=== PATIENT | male | born 1940 | race Caucasian/White ===

== ENCOUNTER 2019-05-29 18:21 | Inpatient (IN) ==
--- NOTE | 2019-05-29 18:49 | DR.EXTPAIN ---
HPI Time seen Time Seen by Provider: 05/29/19 18:43 PCP Primary Care Physician: blue HPI Comment HPI Comment: PATIENT IS 79YR OLD WHITE MALE IN ER WITH ELEVATED BP. PATIENT IS WEAK AND SLEEPING A LOT. HEART RATE IS IRREGULAR IN ER BUT NOT RAPID OR SLOW. NO HISTORY OF IRREGULAR HEART BEAT. BP ELEVATED IN ER. CHEST PRESSURE, MILD PRESENT. STARTED 2 DAYS AGO. NO FEVER, COUGH OR CONGESTION. NO DYSURIA. HIS CONDITION IS WORSE TODAY. Complaint/Symptoms Chief Complaint Doctor Comments: ELEVATED BP. Chief Complaint:: pt stated he started having problems with high blood pressure about 2 days ago and unable to get it down. Nurses notes reviewed Nurses Notes Review: Yes Source History Provided: Patient Mode of arrival Mode of Arrival: Ambulatory Timing Onset of Chief Complaint: 05/27/19 Context History of: Arthritis Associated signs and symptoms Associated Signs and Symptoms: Weakness and Pain PMH PMH Past Medical History: Yes Past Medical History: Arthritis, Coronary Artery Disease and Hypertension Past Surgical History: Yes Surgical History: Abdominal Surgery, Angioplasty/Stents and Ortho Surgery Family History History of Family Medical Conditions: Yes Family Medical History: NM and Coronary Artery Disease Social History Does patient currently use any type of tobacco product: Yes Have you used tobacco products in the last 12 months: Yes Type of Tobacco Use: Pipe Does any household member use tobacco: No Alcohol Use: Rarely Do you use any recreational Drugs:: No Lives With: Family Lives Where: Home infectious screening In the last 2 months have you had wt loss of >10#?: NO Have you had fever, night sweats or hemotysis?: No Have you traveled outside the country in the last 6 months?: No Isolation: Standard ROS Review of Systems Constitutional: See HPI, Weakness and Fatigue; negative Fever Eyes: No Symptoms Reported and See HPI; negative Blurred Vision and Diplopia ENTM: No Symptoms Reported and See HPI; negative Ear Pain, Nose Discharge, Nose Congestion and Throat Pain Respiratoy: See HPI and Short of Breath; negative Moist Cough and Wheezing Cardiovascular: No Symptoms Reported, See HPI, Chest Pain and Other (IRREGULAR HEART RATE.); negative Edema and Palpitations Gastrointestinal/Abdominal: No Symptoms Reported and See HPI; negative Abdominal Pain, Diarrhea, Nausea and Vomiting Genitourinary: No Symptoms Reported and See HPI; negative Dysuria, Frequency and Hematuria Neurological: See HPI and Weakness; negative Headache and Dizziness Musculoskeletal: No Symptoms Reported and See HPI; negative Back Pain and Muscle Pain Integumentary: No Symptoms Reported and See HPI; negative Change in Color, Rash and Juandice Hematologic/Lymphatic: No Symptoms Reported and See HPI; negative Easy Bruising and Swollen Glands Endocrine: No Symptoms Reported and See HPI; negative Increased Thirst and Increased Urine Psychiatric: No Symptoms Reported and See HPI All Other Systems: Reviewed and Negative PE Vital Signs Vitals: Temperature 98.6 F Pulse Rate 72 Respiratory Rate 23 Blood Pressure [Left Arm] 168/79 Blood Pressure [Standing] 99/58 Blood Pressure [Sitting] 100/61 Blood Pressure [Lying] 105/60 Blood Pressure 148/83 O2 Sat by Pulse Oximetry 90 General Limitations: No Limitations General Appearance: Alert and In No Apparent Distress Head Head Exam: Normal Inspection and Atraumatic Eyes Eye exam: Normal Appearance, PERRL and EOMI; negative Scleral Icterus and Conjunctival Injection ENT ENT Exam: Normal Exam, Normal Oropharynx, Normal External Ear Exam and TM's No rmal Bilaterally Neck Neck Exam: Normal Inspection and Trachea Midline; negative Tenderness and Lymphadenopathy Chest Chest Inspection: Normal Inspection and Symmetric Chest Wall Rise; negative Tenderness Respiratory Respiratory Exam: Normal Lung Sounds Bilat; negative Accessory Muscle Use, Chest Wall Tenderness and Respiratory Distress Respiratory Exam: Bilateral: Rhonchi and Lower: Rhonchi Cardiovascular Cardiovascular Exam: Normal Rhythm and Tachycardia Abdominal Exam Abdominal Exam: Normal Inspection, Normal Bowel Sounds and Soft; negative Tenderness Extremities Extremities Exam: Normal Inspection Back Back Exam: Normal Inspection Neurological Neurological Exam: Alert, Oriented X3, CN II-XII Intact and Normal Gait; negative Motor Sensory Deficit Psychiatric Psychiatric Exam: Normal Affect and Normal Mood Skin Skin Exam: Warm, Dry, Intact and Normal Color MDM Differential Diagnosis Differential Diagnosis: Other (IRREGULAR HEART RATE, ELEVATED BP, GENERALIZED WEAKNESS) COURSE Treatment Treatment: SEE ORDERS. CLONIDINE O.1MG PO. PATIENT SIGN OUT TO DR. KUO. Reevaluation 1st: Improved (BP IMPROVING.) ROR Labs Reviewed Laboratory Results Reviewed?: Yes Result Diagrams: 05/30/19 04:36 05/30/19 04:36 Laboratory: WBC 7.1 X10^3/uL (3.6-10.0) 05/29/19 18:51 RBC 4.33 X10^6/uL (4.7-6.0) L 05/29/19 18:51 Hgb 14.2 g/dL (13.5-18.0) 05/29/19 18:51 Hct 41.8 % (42.0-54.0) L 05/29/19 18:51 MCV 96.5 fL (80.0-100.0) 05/29/19 18:51 MCH 32.8 pg (27.0-34.0) 05/29/19 18:51 MCHC 34.0 g/dL (33.0-35.0) 05/29/19 18:51 RDW 13.8 % (11.6-16.5) 05/29/19 18:51 Plt Count 158 X10^3/uL (150.0-450.0) 05/29/19 18:51 MPV 8.6 fL (7.4-11.0) 05/29/19 18:51 Neut % (Auto) 60.7 % (42.0-75.0) 05/29/19 18:51 Lymph % (Auto) 23.7 % (21.0-51.0) 05/29/19 18:51 [place] % (Auto) 12.2 % (0.0-13.0) 05/29/19 18:51 Eos % (Auto) 2.7 % (0.9-2.9) 05/29/19 18:51 Baso % (Auto) 0.7 % (0.2-1.0) 05/29/19 18:51 Neut # (Auto) 4.3 x10^3/uL (2.2-4.8) 05/29/19 18:51 Lymph # (Auto) 1.7 X10^3/uL (1.3-2.9) 05/29/19 18:51 [place] # (Auto) 0.9 x10^3/uL (0.3-0.8) H 05/29/19 18:51 Eos # (Auto) 0.2 x10^3/uL (0.0-0.2) 05/29/19 18:51 Baso # (Auto) 0.0 X10^3/uL (0.0-0.1) 05/29/19 18:51 Absolute Nucleated RBC 0.0 /100WBC 05/29/19 18:51 PT 13.1 SECONDS (11.8-14.3) 05/29/19 18:51 INR Target Range - 05/29/19 18:51 INR 1.03 (0.8-1.3) 05/29/19 18:51 APTT 30.1 SECONDS (22.9-36.5) 05/29/19 18:51 PTT Comment - 05/29/19 18:51 D-Dimer 1230 ng/mL (0-400) H* 05/29/19 18:51 Sodium 140 mmol/L (136-145) 05/29/19 18:51 Corrected Sodium TNP 05/29/19 18:51 Potassium 3.7 mmol/L (3.5-5.1) 05/29/19 18:51 Chloride 105 mmol/L (98-107) 05/29/19 18:51 Carbon Dioxide 29.8 mmol/L (21-32) 05/29/19 18:51 BUN 18 mg/dL (7-18) 05/29/19 18:51 Creatinine 1.20 mg/dL (0.70-1.30) 05/29/19 18:51 Est GFR (MDRD) Af Amer > 60 (>60) 05/29/19 18:51 Est GFR (MDRD) Non-Af > 60 (>60) 05/29/19 18:51 Glucose 88 mg/dL (65-99) 05/29/19 18:51 Calcium 9.0 mg/dL (8.5-10.1) 05/29/19 18:51 Corrected Calcium TNP 05/29/19 18:51 Magnesium 1.8 mg/dL (1.7-2.9) 05/29/19 18:51 Total Bilirubin 0.70 mg/dL (0.2-1.0) 05/29/19 18:51 AST 17 Units/L (15-37) 05/29/19 18:51 ALT 24 Units/L (12-78) 05/29/19 18:51 Alkaline Phosphatase 52 Units/L (46-116) 05/29/19 18:51 Creatine Kinase 91 Units/L (39-308) 05/29/19 22:34 CK-MB (CK-2) 1.2 ng/mL (0-4.0) 05/29/19 22:34 CK/CKMB % Calc 1.3 % (<4) 05/29/19 22:34 Troponin I < 0.02 ng/mL (0-1.5) 05/29/19 22:34 Total Protein 7.3 g/dL (6.4-8.2) 05/29/19 18:51 Albumin 3.9 g/dL (3.4-5.0) 05/29/19 18:51 Globulin 3.4 g/dL (2.5-4.5) 05/29/19 18:51 Albumin/Globulin Ratio 1.1 Ratio (1.1-2.1) 05/29/19 18:51 XRAY XRAY Interpreted by: Radiologist (REPORTS NOTED.) and Self EKG Rate: 88 [place]: LAD Rhythm: Afib Block: None Hypertrophy: None ST: Infarct and Nonsp Opioid Opioid Risk Tool Age (Virgilio box if 16-45): No History of Preadolescent Sexual Abuse: No Total: 0 Total Score Risk Category: Low Risk Copyright: Bandar LONG predicting aberrant behaviors Diagnosis Discharge Problem: Atrial fibrillation, Accelerated hypertension, Chest pain, Pleural effusion, Lung mass Aorta aneurysm Qualifiers: Aortic location: unspecified Instructions Forms: Excuse From Work Patient Portal
[2019-05-29] MEDS ORDERED: CATAPRES TAB 0.1 MG PO ONE (19:06)
[2019-05-29] MEDS ORDERED: CATAPRES TAB 0.1 MG ONE (19:07)
[2019-05-29 19:22] LABS: BASOPHILS % (AUTO) 0.7 % (0.2-1.0); EOSINOPHILS # (AUTO) 0.2 x10^3/uL (0.0-0.2); EOSINOPHILS % (AUTO) 2.7 % (0.9-2.9); HEMATOCRIT 41.8 % (42.0-54.0); HEMOGLOBIN 14.2 g/dL (13.5-18.0); LYMPHOCYTES # (AUTO) 1.7 X10^3/uL (1.3-2.9); LYMPHOCYTES % (AUTO) 23.7 % (21.0-51.0); MEAN CORPUSCULAR HEMOGLOBIN 32.8 pg (27.0-34.0); MEAN CORPUSCULAR VOLUME 96.5 fL (80.0-100.0); MEAN PLATELET VOLUME 8.6 fL (7.4-11.0); MONOCYTES # (AUTO) 0.9 x10^3/uL (0.3-0.8); MONOCYTES % (AUTO) 12.2 % (0.0-13.0); NEUTROPHILS # (AUTO) 4.3 x10^3/uL (2.2-4.8); NEUTROPHILS % (AUTO) 60.7 % (42.0-75.0); PLATELET COUNT 158 X10^3/uL (150.0-450.0); RED BLOOD COUNT 4.33 X10^6/uL (4.7-6.0); RED CELL DISTRIBUTION WIDTH 13.8 % (11.6-16.5); WHITE BLOOD COUNT 7.1 X10^3/uL (3.6-10.0)
--- NOTE | 2019-05-29 19:37 | RAD ---
HISTORYCHEST PAINSTUDYCHEST, 1 [id number] heart is mildly enlarged and more prominent. The pulmonary vessels are slightly engorged centrally and more prominent. No consolidation or effusion is seen. The bones are intact.IMPRESSIONMild cardiomegaly and mild central pulmonary congestion or pulmonary artery hypertension which is more prominent with no acute infiltrate or effusion.Electronically signed by: THI ZARATE (May 29, 2019 19:36:28)
[2019-05-29 20:56] LABS: ALANINE AMINOTRANSFERASE 24 Units/L (12-78); ALBUMIN 3.9 g/dL (3.4-5.0); ALKALINE PHOSPHATASE 52 Units/L (46-116); ASPARTATE AMINO TRANSFERASE 17 Units/L (15-37); BLOOD UREA NITROGEN 18 mg/dL (7-18); CARBON DIOXIDE 29.8 mmol/L (21-32); CHLORIDE 105 mmol/L (98-107); CKMB % 1.4 % (<4); CREATINE KINASE 100 Units/L (39-308); CREATINE KINASE MB 1.4 ng/mL (0-4.0); MAGNESIUM 1.8 mg/dL (1.7-2.9); SODIUM 140 mmol/L (136-145); TOTAL PROTEIN 7.3 g/dL (6.4-8.2); TROPONIN I < 0.02 ng/mL (0-1.5); eGFR NON BLACK RACES > 60 (>60)
[2019-05-29] MEDS ORDERED: CATAPRES TAB 0.2 MG ONE (21:59)
[2019-05-29] MEDS: CATAPRES TAB 0.2 MG PO ONE (21:59)
--- NOTE | 2019-05-29 22:01 | CT ---
HISTORYCHEST PAIN, ELEVTATED D DIMER [id number] CHESTCOMPARISONNoneTECHNIQUEMultiple axial images of the chest were obtained from the thoracic inlet to the upper abdomen after the administration of IV contrast. 3D reconstructions utilizing axial MIPS imaging was performed and reviewed. Dose reduction techniques including Automated Exposure Control (AEC) and adjustment of mA and kV were utilized.FINDINGSThe thyroid gland is unremarkable. There is mild calcified plaque throughout the aorta which is mildly dilated throughout with aneurysmal dilatation of the ascending aorta measuring up to 5.2 cm. There is very little opacification of the aorta making it difficult to further characterize the lumen.There are small lymph nodes in the AP window and pretracheal region measuring up to 1 cm 1.5 cm. The pulmonary arteries are well opacified with no filling defect or vessel cutoff. The adrenals are normal. The gallbladder has been removed. There surgical clips along the epigastric region. There is a tiny right pleural effusion posteriorly with hazy bibasilar opacities posteriorly which is more prominent on the right. There is a 8 mm pleural-based nodule along the right middle lobe laterally. There is an erect 2.7 cm mass or infiltrate along the left lung base medially. There is 7 mm nodule along the lingula inferiorly and laterally. The bones are intact.IMPRESSIONNo evidence of a pulmonary embolus.Mild atherosclerotic thoracic aorta with aneurysmal dilatation of the ascending aorta measuring up to 5.2 cm with no significant opacification of the aorta making it difficult to further characterize, recommend clinical follow-up.Mild bibasilar atelectasis or early infiltrates posteriorly and a tiny right pleural effusion, recommend follow-upBorderline enlarged mediastinal lymph nodes which could be reactive or neoplastic in etiology, suggest PET scan correlation.Small pulmonary nodules along the lung bases and a 2.7 cm mass or rounded irregular infiltrate along the left lung base medially, suggest PET scan correlation.Postop changes along the epigastric region and previous cholecystectomy.Electronically signed by: THI ZARATE (May 29, 2019 22:00:19)
[2019-05-29] MEDS ORDERED: LASIX IVP ONE ×2 (22:21→22:29)
[2019-05-29] MEDS ORDERED: LABETALOL HCL IVP ONE (22:57)
[2019-05-29] MEDS ORDERED: NORMODYNE INJ 20 MG VIAL ONE (22:59)
[2019-05-29 23:00] LABS: CKMB % 1.3 % (<4); CREATINE KINASE 91 Units/L (39-308); CREATINE KINASE MB 1.2 ng/mL (0-4.0); TROPONIN I < 0.02 ng/mL (0-1.5)
[2019-05-29] MEDS ORDERED: ELIQUIS PO STA (23:23)
[2019-05-30 02:00] VITALS: BMI 28.3
[2019-05-30 05:27] LABS: BASOPHILS % (AUTO) 0.7 % (0.2-1.0); EOSINOPHILS # (AUTO) 0.2 x10^3/uL (0.0-0.2); EOSINOPHILS % (AUTO) 2.5 % (0.9-2.9); HEMATOCRIT 42.7 % (42.0-54.0); HEMOGLOBIN 14.7 g/dL (13.5-18.0); LYMPHOCYTES # (AUTO) 1.8 X10^3/uL (1.3-2.9); MEAN CORPUSCULAR HEMOGLOBIN 33.2 pg (27.0-34.0); MEAN CORPUSCULAR HGB CONC 34.4 g/dL (33.0-35.0); MEAN CORPUSCULAR VOLUME 96.7 fL (80.0-100.0); MONOCYTES # (AUTO) 0.8 x10^3/uL (0.3-0.8); MONOCYTES % (AUTO) 12.6 % (0.0-13.0); NEUTROPHILS # (AUTO) 3.8 x10^3/uL (2.2-4.8); NEUTROPHILS % (AUTO) 57.2 % (42.0-75.0); PLATELET COUNT 148 X10^3/uL (150.0-450.0); RED BLOOD COUNT 4.42 X10^6/uL (4.7-6.0); RED CELL DISTRIBUTION WIDTH 14.1 % (11.6-16.5); WHITE BLOOD COUNT 6.6 X10^3/uL (3.6-10.0)
[2019-05-30 05:36] LABS: ALANINE AMINOTRANSFERASE 22 Units/L (12-78); ALKALINE PHOSPHATASE 56 Units/L (46-116); ASPARTATE AMINO TRANSFERASE 16 Units/L (15-37); BLOOD UREA NITROGEN 15 mg/dL (7-18); CALCIUM 9.3 mg/dL (8.5-10.1); CARBON DIOXIDE 32.5 mmol/L (21-32); CHLORIDE 101 mmol/L (98-107); CHOL/HDL RATIO 2.2 (0.0-5.0); CHOLESTEROL 105 mg/dL (0-200); CREATININE 1.13 mg/dL (0.70-1.30); HDL CHOLESTEROL 47 mg/dL (40-60); SODIUM 141 mmol/L (136-145); TOTAL PROTEIN 7.6 g/dL (6.4-8.2); TRIGLYCERIDES 42 mg/dL (0-150); eGFR NON BLACK RACES > 60 (>60)
[2019-05-30 05:51] LABS: CKMB % 1.6 % (<4); CREATINE KINASE MB 1.3 ng/mL (0-4.0); TROPONIN I 0.02 ng/mL (0-1.5)
[2019-05-30] MEDS: ALPHAGAN 0.2% OPHTH SOLN OP SCH ×3 (09:18→20:06)
[2019-05-30] MEDS: PLAVIX PO SCH (09:19)
[2019-05-30] MEDS: ELIQUIS PO SCH ×2 (09:19→20:06)
[2019-05-30] MEDS: TIMOPTIC 0.5% EYE DROPS OP SCH ×3 (09:20→20:08)
[2019-05-30] MEDS: COLESTIPOL PO SCH ×2 (09:20→22:32)
[2019-05-30] MEDS: PROTONIX INJ 40 MG VIAL IVP SCH (09:20)
[2019-05-30 11:03] LABS: CKMB % 2.4 % (<4); CREATINE KINASE 71 Units/L (39-308); CREATINE KINASE MB 1.7 ng/mL (0-4.0); TROPONIN I < 0.02 ng/mL (0-1.5)
[2019-05-30] MEDS ORDERED: NORVASC TAB 5 MG PO SCH (12:00)
[2019-05-30] MEDS ORDERED: NORVASC TAB 5 MG ONE (12:14)
[2019-05-30] MEDS ORDERED: TOPROL XL PO ONE ×2 (12:14→22:30)
[2019-05-30] MEDS: TOPROL XL PO ONE (12:16)
[2019-05-30] MEDS ORDERED: NORVASC TAB 5 MG PO ONE (18:28)
[2019-05-30] MEDS ORDERED: COZAAR PO SCH (21:00)
[2019-05-30] MEDS ORDERED: LIPITOR TAB 40 MG PO SCH (21:00)
[2019-05-30] MEDS ORDERED: TOPROL XL PO SCH (21:00)
[2019-05-31 05:23] LABS: BASOPHILS % (AUTO) 0.7 % (0.2-1.0); EOSINOPHILS # (AUTO) 0.3 x10^3/uL (0.0-0.2); EOSINOPHILS % (AUTO) 3.6 % (0.9-2.9); HEMATOCRIT 42.9 % (42.0-54.0); HEMOGLOBIN 14.6 g/dL (13.5-18.0); LYMPHOCYTES % (AUTO) 28.2 % (21.0-51.0); MEAN CORPUSCULAR HEMOGLOBIN 33.1 pg (27.0-34.0); MEAN CORPUSCULAR HGB CONC 34.1 g/dL (33.0-35.0); MEAN PLATELET VOLUME 9.1 fL (7.4-11.0); MONOCYTES # (AUTO) 0.9 x10^3/uL (0.3-0.8); NEUTROPHILS # (AUTO) 3.8 x10^3/uL (2.2-4.8); NEUTROPHILS % (AUTO) 54.5 % (42.0-75.0); PLATELET COUNT 155 X10^3/uL (150.0-450.0); RED BLOOD COUNT 4.42 X10^6/uL (4.7-6.0); RED CELL DISTRIBUTION WIDTH 13.9 % (11.6-16.5)
[2019-05-31 05:33] LABS: ALANINE AMINOTRANSFERASE 20 Units/L (12-78); ALBUMIN 3.5 g/dL (3.4-5.0); ALKALINE PHOSPHATASE 49 Units/L (46-116); ASPARTATE AMINO TRANSFERASE 15 Units/L (15-37); BLOOD UREA NITROGEN 18 mg/dL (7-18); CARBON DIOXIDE 32.5 mmol/L (21-32); CHLORIDE 103 mmol/L (98-107); CREATININE 1.12 mg/dL (0.70-1.30); SODIUM 141 mmol/L (136-145); eGFR NON BLACK RACES > 60 (>60)
[2019-05-31] MEDS ORDERED: TOPROL XL PO SCH (09:00)
[2019-05-31] MEDS ORDERED: NORVASC TAB 10 MG PO SCH (09:00)
[2019-05-31] MEDS: COLESTIPOL PO SCH (09:59)
[2019-05-31] MEDS: PROTONIX INJ 40 MG VIAL IVP SCH (09:59)
[2019-05-31] MEDS: ELIQUIS PO SCH (09:59)
[2019-05-31] MEDS: ALPHAGAN 0.2% OPHTH SOLN OP SCH (10:00)
[2019-05-31] MEDS: PLAVIX PO SCH (10:00)
[2019-05-31] MEDS: TIMOPTIC 0.5% EYE DROPS OP SCH (10:00)
[2019-05-31 10:26] VITALS: BP 137/81
== END 2019-05-31 10:40 | disposition home or self-care (01) | DRG 310 ==
LOC: ER 18:35 → ICU 05-30 00:42
PROVIDERS: ADMIT Obstetrics & Gynecology Obstetrics; ATTEND Obstetrics & Gynecology Obstetrics
DX: I25.10 Atherosclerotic heart disease of native coronary artery without angina pectoris; R91.8 Other nonspecific abnormal finding of lung field; R94.31 Abnormal electrocardiogram [ECG] [EKG]; R07.89 Other chest pain; I48.91 Unspecified atrial fibrillation; I10 Essential (primary) hypertension; I71.4 Abdominal aortic aneurysm, without rupture
CPT/HCPCS: 36415; 71010; 71045; 71275; 80053; 80061; 82550; 82553; 83735; 84484; 85025; 85378; 85610; 85730; 93005; 96365; 96374; 96375; 99285; A4216; A4222; C9113; J1940; J3490

== ENCOUNTER 2019-11-29 12:44 | Inpatient (IN) ==
[2019-11-29 13:17] VITALS: BMI 29.7
--- NOTE | 2019-11-29 14:06 | DR.SOBA ---
HPI Time Seen Time Seen by Provider: 11/29/19 13:20 Primary Care Physician Primary Care Physician: WILLIAM HALE Complaints Chief Complaint Doctors Comments: INCREASING SOB, BODYACHES, LOW OXYGEN SATURATION AND CONTACT WITH COVID POSITIVE PATIENT. GENERALIZED ACHING PAIN 6/10 AND GENERALIZED WEAKNESS. PRODUCTIVE COUGH, YELLOW SPUTUM. RUNNING FEVER ON AND OFF. MEDICATIONS TAKEN SO FAR HAVE NOT HELP. Chief Complaint:: SHORTNESS OF BREATH, ACHES, LOW O2, HAS POSITIVE FAMILY WITH COVID BY HISTORY Self Treatment fo Chief Complaint: HOME MEDS COVID-19 Coronavirus risk:travel/contact w/high risk person: No Has patient experienced Coronavirus symptoms: Yes Coronavirus symptoms experienced: Fever, Coughing and Shortness of Breath Reviewed Nurses Notes Reviewed: Yes Source History Provided: Patient and EMS Mode of Arrival Mode of Arrival: EMS Timing Onset of Chief Complaint: 11/23/19 Duration Duration: Days Context Onset:: At Rest PE Risk Factors:: None History of:: None Currently on:: Neither Prehospital Care:: None Modifying Factors Worsens:: Exertion Improves:: Rest Associated Signs and Symptoms Associated Signs and Symptoms: Fever and Cough If Chest Pain Quality: Aching Location: Substernal and Chest Wall If Cough Cough: Nonproductive PMH PMH Past Medical History: Yes Past Medical History: Arthritis, Coronary Artery Disease and Hypertension Past Surgical History: Yes Surgical History: Abdominal Surgery and Bowel Resection Family History History of Family Medical Conditions: Yes Family Medical History: Coronary Artery Disease and Hypertension Social History Does patient currently use any type of tobacco product: No Type of Tobacco Use: None Does any household member use tobacco: No Alcohol Use: None Do you use any recreational Drugs:: No Lives With: Family Lives Where: Home Travel Risk Coronavirus risk:travel/contact w/high risk person: No Has patient experienced Coronavirus symptoms: Yes Coronavirus symptoms experienced: Fever, Coughing and Shortness of Breath Infectious screening In the last 2 months have you had wt loss of >10#?: NO Have you had fever, night sweats or hemotysis?: No Have you traveled outside the country in the last 6 months?: No Isolation: Droplet ROS Review of Systems Constitutional: See HPI, Fever, Weakness, Fatigue and Loss of Appetite Eyes: No Symptoms Reported and See HPI ENTM: See HPI, Nose Discharge and Nose Congestion; negative Ear Pain and Throat Pain Respiratoy: See HPI, Productive Cough and Short of Breath; negative Wheezing Cardiovascular: See HPI and Chest Pain (CHEST TIGHTNESS AND CHEST WALL PAIN.) Gastrointestinal/Abdominal: No Symptoms Reported and See HPI; negative Abdominal Pain, Diarrhea, Nausea and Vomiting Genitourinary: No Symptoms Reported and See HPI; negative Dysuria, Frequency and Hematuria Neurological: See HPI, Headache and Weakness; negative Dizziness Musculoskeletal: See HPI, Back Pain and Muscle Pain Integumentary: No Symptoms Reported and See HPI; negative Change in Color, Rash and Juandice Hematologic/Lymphatic: No Symptoms Reported and See HPI; negative Easy Bruising and Swollen Glands Endocrine: Decreased Appetite; negative Increased Thirst and Increased Urine Psychiatric: No Symptoms Reported and See HPI All Other Systems: Reviewed and Negative PE Vital Signs Vitals: Temperature 98.4 F Pulse Rate [Right Brachial] 58 Pulse Rate 62 Respiratory Rate 23 Blood Pressure [Left Arm] 144/67 Blood Pressure [Standing] 99/58 Blood Pressure [Sitting] 100/61 Blood Pressure [Lying] 105/60 Blood Pressure 121/57 O2 Sat by Pulse Oximetry 94 General Limitations: No Limitations General Appearance: Alert and In Distress Head Head Exam: Normal Inspection Eyes Eye exam: Normal Appearance and PERRL; negative Scleral Icterus and Conjunctival Injection ENT ENT Exam: Normal External Ear Exam and TM's Normal Bilaterally; negative Normal Oropharynx Neck Neck Exam: Normal Inspection and Trachea Midline; negative Tenderness and Lymphadenopathy Chest Chest Inspection: Normal Inspection; negative Tenderness Respiratory Respiratory Exam: Normal Lung Sounds Bilat; negative Accessory Muscle Use, Chest Wall Tenderness and Respiratory Distress Respiratory Exam: Bilateral: Rhonchi and Lower: Rhonchi Cardiovascular Cardiovascular Exam: Regular Rate, Normal Rhythm and Normal Heart Sounds; negative Systolic Murmur and Diastolic Murmur Abdominal Exam Abdominal Exam: Normal Inspection, Normal Bowel Sounds and Soft; negative Tenderness Extremities Extremities Exam: Normal Inspection; negative Tenderness and Calf Tenderness Back Back Exam: negative (R) CVA Tenderness and (L) CVA Tenderness Neurologic Neurological Exam: Alert and Oriented X3; negative Motor Sensory Deficit Psychiatric Psychiatric Exam: Normal Affect Skin Skin Exam: Dry, Intact and Normal Color MDM Differential Diagnosis Differential Diagnosis: Bronchitis, CHF, Dysrhythmia, Hyponatremia, Mycardial Infarction, Pneumonia, Pneumothorax, Respiratory Insufficiency and URI COURSE Treatment Treatment: SEE ORDERS. DECADRON 6MG IN. Consultation Consultation Comments: DISCUSSED PATIENT WITH DR. COVINGTON. HE WILL ADMIT PATIENT. Education/Counseling Education/Counseling: Patient Educated On: Diagnosis ROR Labs Reviewed Laboratory Results Reviewed?: Yes Result Diagrams: 12/04/19 04:07 12/04/19 04:07 Laboratory: 11/29/19 14:20 Blood Blood Culture - Final 11/29/19 14:10 Blood Blood Culture - Final WBC 10.7 X10^3/uL (3.6-10.0) H 12/01/19 08:19 RBC 4.31 X10^6/uL (4.7-6.0) L 12/01/19 08:19 Hgb 14.0 g/dL (13.5-18.0) 12/01/19 08:19 Hct 40.9 % (42.0-54.0) L 12/01/19 08:19 MCV 94.8 fL (80.0-100.0) 12/01/19 08:19 MCH 32.5 pg (27.0-34.0) 12/01/19 08:19 MCHC 34.3 g/dL (33.0-35.0) 12/01/19 08:19 RDW 13.7 % (11.6-16.5) 12/01/19 08:19 Plt Count 269 X10^3/uL (150.0-450.0) 12/01/19 08:19 Plt Count Comment Adequate (ADEQUATE) 12/01/19 08:19 MPV 7.5 fL (7.4-11.0) 12/01/19 08:19 Neut % (Auto) 90.4 % (42.0-75.0) H 12/01/19 08:19 Lymph % (Auto) 4.9 % (21.0-51.0) L 12/01/19 08:19 [place] % (Auto) 4.7 % (0.0-13.0) 12/01/19 08:19 Eos % (Auto) 0.0 % (0.9-2.9) L 12/01/19 08:19 Baso % (Auto) 0 % (0.2-1.0) L 12/01/19 08:19 Neut # (Auto) 9.7 x10^3/uL (2.2-4.8) H 12/01/19 08:19 Lymph # (Auto) 0.5 X10^3/uL (1.3-2.9) L 12/01/19 08:19 [place] # (Auto) 0.5 x10^3/uL (0.3-0.8) 12/01/19 08:19 Eos # (Auto) 0.0 x10^3/uL (0.0-0.2) 12/01/19 08:19 Baso # (Auto) 0.0 X10^3/uL (0.0-0.1) 12/01/19 08:19 Absolute Nucleated RBC 0.0 /100WBC 12/01/19 08:19 Total Counted 100 12/01/19 08:19 Neutrophils % (Manual) 88 % (39-76) H 12/01/19 08:19 Lymphocytes % (Manual) 9 % (13-43) L 12/01/19 08:19 Monocytes % (Manual) 3 % (4-9) L 12/01/19 08:19 Plt Morphology Comment Normal (NORMAL) 12/01/19 08:19 RBC Morphology Normal (NORMAL) 12/01/19 08:19 Sample Site Rr 11/29/19 14:10 ABG pH 7.470 (7.35-7.45) H 11/29/19 14:10 ABG pCO2 35.0 mmHg (35.0-45.0) 11/29/19 14:10 ABG pO2 58.0 mmHg (80.0-100.0) L 11/29/19 14:10 ABG HCO3 25.5 mmol/L (22-26) 11/29/19 14:10 ABG O2 Saturation 92.0 % (90-100) 11/29/19 14:10 ABG Base Excess 2.0 mmol/L (-2.0-2.0) 11/29/19 14:10 Domenico Test Pos 11/29/19 14:10 A-a Gradient 48.0 mmHg 11/29/19 14:10 FiO2 21.0 11/29/19 14:10 Blood Gas Comments Pt [email or web address] 11/29/19 14:10 Sodium 137 mmol/L (136-145) 12/01/19 08:19 Corrected Sodium 138 mmol/L (136-145) 12/01/19 08:19 Potassium 3.6 mmol/L (3.5-5.1) 12/01/19 08:19 Chloride 101 mmol/L (98-107) 12/01/19 08:19 Carbon Dioxide 24.0 mmol/L (21-32) 12/01/19 08:19 BUN 17 mg/dL (7-18) 12/01/19 08:19 Creatinine 1.16 mg/dL (0.70-1.30) 12/01/19 08:19 Est GFR (MDRD) Af Amer > 60 (>60) 12/01/19 08:19 Est GFR (MDRD) Non-Af > 60 (>60) 12/01/19 08:19 Glucose 157 mg/dL (65-99) H 12/01/19 08:19 Lactic Acid 1.7 mmol/L (0.4-2.0) 11/29/19 14:10 Calcium 8.8 mg/dL (8.5-10.1) 12/01/19 08:19 Corrected Calcium 9.9 mg/dL (8.5-10.1) 12/01/19 08:19 Ferritin 468 ng/mL (26-388) H 11/29/19 14:10 Total Bilirubin 0.40 mg/dL (0.2-1.0) 12/01/19 08:19 AST 29 Units/L (15-37) 12/01/19 08:19 ALT 38 Units/L (12-78) 12/01/19 08:19 Alkaline Phosphatase 62 Units/L (46-116) 12/01/19 08:19 Creatine Kinase 60 Units/L (39-308) 11/29/19 14:10 CK-MB (CK-2) < 1.0 ng/mL (0-4.0) 11/29/19 14:10 CK/CKMB % Calc 1.7 % (<4) 11/29/19 14:10 Troponin I < 0.02 ng/mL (0-1.5) 11/29/19 14:10 C-Reactive Protein 40.00 mg/L (0-3.0) H 12/01/19 08:19 Total Protein 7.0 g/dL (6.4-8.2) 12/01/19 08:19 Albumin 2.6 g/dL (3.4-5.0) L 12/01/19 08:19 Globulin 4.4 g/dL (2.5-4.5) 12/01/19 08:19 Albumin/Globulin Ratio 0.6 Ratio (1.1-2.1) L 12/01/19 08:19 Blood Type O POSITIVE 11/30/19 14:28 XRAY XRAY Interpreted by: Radiologist (REPORT NOTED AND DISCUSSED WITH PATIENT.) and Self EKG Rate: 57 [place]: Normal Rhythm: NSR Block: 1 Hypertrophy: None ST: Old, Inf and Infarct Opioid Opioid Risk Tool Age (Virgilio box if 16-45): No History of Preadolescent Sexual Abuse: No Total: 0 Total Score Risk Category: Low Risk Copyright: Portillo LR predicting aberrant behaviors Diagnosis Discharge Problem: Pneumonia due to COVID-19 virus, Hypoxia Pneumonia Qualifiers: Pneumonia type: due to unspecified organism Laterality: bilateral Lung location: lower lobe of lung Qualified Code(s): J18.9 - Pneumonia, unspecified organism Instructions Instructions: Shortness of Breath, Adult, Tqut-kr-Jezg Hypotension, Tuyo-vw-Fzsy Viral Respiratory Infection, Nvkl-Rs-Zqbg Home Oxygen Use, Adult Hand Washing, Uhtq-uy-Deem Upper Respiratory Infection, Adult, Ldtz-cy-Ulnk Contact Precautions Fever, Adult Cough, Adult, Rpln-ry-Pbps Droplet Precautions, Eten-qb-Aohk How to Use a Nebulizer, Adult You've Been Prescribed an Antibiotic in the Hospital for an Infection - CDC (06/2017) Forms: Convalescent Plasma Precautions for COVID19 Patient Portal Social Distancing
[2019-11-29 14:22] LABS: ABG HCO3 25.5 mmol/L (22-26)
[2019-11-29 14:23] LABS: ABG ALLEN TEST POS
[2019-11-29 14:37] LABS: BASOPHILS % (AUTO) 0.2 % (0.2-1.0); HEMATOCRIT 40.3 % (42.0-54.0); HEMOGLOBIN 13.9 g/dL (13.5-18.0); LYMPHOCYTES # (AUTO) 0.4 X10^3/uL (1.3-2.9); LYMPHOCYTES % (AUTO) 6.3 % (21.0-51.0); MEAN CORPUSCULAR HEMOGLOBIN 32.5 pg (27.0-34.0); MEAN CORPUSCULAR HGB CONC 34.4 g/dL (33.0-35.0); MEAN CORPUSCULAR VOLUME 94.5 fL (80.0-100.0); MEAN PLATELET VOLUME 7.5 fL (7.4-11.0); MONOCYTES # (AUTO) 0.7 x10^3/uL (0.3-0.8); MONOCYTES % (AUTO) 9.8 % (0.0-13.0); NEUTROPHILS # (AUTO) 5.9 x10^3/uL (2.2-4.8); NEUTROPHILS % (AUTO) 83.7 % (42.0-75.0); PLATELET COUNT 227 X10^3/uL (150.0-450.0); RED BLOOD COUNT 4.27 X10^6/uL (4.7-6.0); RED CELL DISTRIBUTION WIDTH 13.4 % (11.6-16.5); WHITE BLOOD COUNT 7.1 X10^3/uL (3.6-10.0)
[2019-11-29 14:47] LABS: ALANINE AMINOTRANSFERASE 41 Units/L (12-78); ALKALINE PHOSPHATASE 59 Units/L (46-116); ASPARTATE AMINO TRANSFERASE 30 Units/L (15-37); BLOOD UREA NITROGEN 19 mg/dL (7-18); CARBON DIOXIDE 24.5 mmol/L (21-32); CHLORIDE 100 mmol/L (98-107); COR CA(FOR HYPOALB) 9.8 mg/dL (8.5-10.1); COR NA(FOR HYPERGLY) 134 mmol/L (136-145); CREATININE 1.17 mg/dL (0.70-1.30); SODIUM 134 mmol/L (136-145); TOTAL PROTEIN 7.2 g/dL (6.4-8.2); eGFR NON BLACK RACES > 60 (>60)
[2019-11-29] MEDS ORDERED: DECADRON INJ PRESERVATIVE-FREE IVP ONE (15:07)
[2019-11-29 15:08] LABS: LACTIC ACID 1.7 mmol/L (0.4-2.0)
[2019-11-29 15:10] LABS: CKMB % 1.7 % (<4); CREATINE KINASE 60 Units/L (39-308); CREATINE KINASE MB < 1.0 ng/mL (0-4.0); TROPONIN I < 0.02 ng/mL (0-1.5)
[2019-11-29] MEDS ORDERED: DECADRON INJ ONE (15:11)
--- NOTE | 2019-11-29 15:14 | RAD ---
HISTORYSOB, DROPLET PRECAUTIOSSTUDYCHEST, 1 [id number] cardiomediastinal silhouette. Multifocal patchy peripheral opacities are seen, new from prior. No dense consolidation, sizable effusion, overt pulmonary edema, or visible pneumothorax. No acute osseous finding. Upper abdomen clips.IMPRESSIONInterval multifocal mostly peripheral patchy opacities may reflect atypical or viral pneumonia. Consider COVID-19.Electronically signed by: Tam Harris (Nov 29, 2019 15:13:19)
[2019-11-29] MEDS ORDERED: TUSSIONEX PENNKINETIC SUSP PO PRN (17:25)
[2019-11-29] MEDS ORDERED: REMDESIVIR (INVESTIGATIONAL DRUG GS-5734) 200 MG in NS 250 ML IV 250 ML IV SCH (17:35)
[2019-11-29] MEDS ORDERED: NS 250 ML IV 250 ML IV ONE (17:42)
[2019-11-29] MEDS ORDERED: REMDESIVIR (INVESTIGATIONAL DRUG GS-5734) IV ONE (17:42)
[2019-11-29] MEDS ORDERED: XOPENEX 1.25 MG/3 ML NEBULE NEB ONE (19:36)
[2019-11-29] MEDS ORDERED: PULMICORT NEB TX 0.5 MG NEB ONE (19:37)
[2019-11-29] MEDS: PULMICORT NEB TX 0.5 MG NEB SCH (20:10)
[2019-11-29] MEDS: XOPENEX 1.25 MG/3 ML NEBULE NEB SCH (20:10)
[2019-11-29] MEDS: ZINC SULFATE PO SCH (20:40)
[2019-11-29] MEDS: NS 1000 ML 1,000 ML IV SCH (20:40)
[2019-11-29] MEDS: ROBITUSSIN DM PO SCH (20:41)
[2019-11-29] MEDS ORDERED: LOVENOX INJ 30 MG SYR SC SCH (21:00)
[2019-11-29] MEDS ORDERED: PLAQUENIL PO SCH (21:00)
[2019-11-29] MEDS: ASCORBIC ACID INJ MULTI-DOSE VIAL 1,500 MG in NS 100 ML IV 100 ML IV SCH (21:15)
[2019-11-30] MEDS: ASCORBIC ACID INJ MULTI-DOSE VIAL 1,500 MG in NS 100 ML IV 100 ML IV SCH ×4 (03:47→21:40)
[2019-11-30 05:21] LABS: BASOPHILS % (AUTO) 0.1 % (0.2-1.0); HEMATOCRIT 40.1 % (42.0-54.0); HEMOGLOBIN 13.9 g/dL (13.5-18.0); LYMPHOCYTES # (AUTO) 0.5 X10^3/uL (1.3-2.9); LYMPHOCYTES % (AUTO) 6.9 % (21.0-51.0); MEAN CORPUSCULAR HEMOGLOBIN 32.7 pg (27.0-34.0); MEAN CORPUSCULAR HGB CONC 34.7 g/dL (33.0-35.0); MEAN CORPUSCULAR VOLUME 94.2 fL (80.0-100.0); MEAN PLATELET VOLUME 7.7 fL (7.4-11.0); MONOCYTES # (AUTO) 0.7 x10^3/uL (0.3-0.8); MONOCYTES % (AUTO) 10.1 % (0.0-13.0); NEUTROPHILS # (AUTO) 5.4 x10^3/uL (2.2-4.8); NEUTROPHILS % (AUTO) 82.9 % (42.0-75.0); PLATELET COUNT 219 X10^3/uL (150.0-450.0); RED BLOOD COUNT 4.26 X10^6/uL (4.7-6.0); RED CELL DISTRIBUTION WIDTH 13.7 % (11.6-16.5); WHITE BLOOD COUNT 6.5 X10^3/uL (3.6-10.0)
[2019-11-30 05:30] LABS: ALANINE AMINOTRANSFERASE 42 Units/L (12-78); ALBUMIN 2.8 g/dL (3.4-5.0); ALKALINE PHOSPHATASE 59 Units/L (46-116); ASPARTATE AMINO TRANSFERASE 28 Units/L (15-37); BLOOD UREA NITROGEN 18 mg/dL (7-18); CARBON DIOXIDE 26.2 mmol/L (21-32); CHLORIDE 101 mmol/L (98-107); COR NA(FOR HYPERGLY) 137 mmol/L (136-145); CREATININE 1.02 mg/dL (0.70-1.30); SODIUM 136 mmol/L (136-145); TOTAL PROTEIN 7.2 g/dL (6.4-8.2); eGFR NON BLACK RACES > 60 (>60)
[2019-11-30] MEDS: XOPENEX 1.25 MG/3 ML NEBULE NEB SCH ×3 (05:31→21:23)
[2019-11-30] MEDS ORDERED: TYLENOL 325 MG TAB PO PRN (07:32)
[2019-11-30] MEDS ORDERED: TYLENOL 325 MG TAB PO ONE (07:40)
--- NOTE | 2019-11-30 08:33 | DR.H&P ---
H&P History & Physical for Day of: H&P Date: 11/30/19 Chief Complaint Chief Complaint: Shortness of breath Allergies Allergies Allergy/AdvReac Type Severity Reaction Status Date / Time No Known Drug Allergies Allergy Verified 05/29/19 18:35 History of Present Illness History of Present Illness: Pt is a 79 yo m pmhx Afib, HTN, HLD, admitted for COVID19 pneumonia(positive on 11/26/19) after having symptoms of fever, chills, body aches, fatigue, and shortness of breath for the past 4-5 days. He reports having family members that also tested positive for the virus. He has been having nausea and loss of appetite. Labs/imaging: Wbc 6.5, Hgb 13.9, Plt 219, Na 137, K 3.8, Cr 1.02, Gluc 128. AB.47/35/58/25/92% on RA, CRP 27, CXR: Interval multifocal mostly peripheral patchy opacities may reflect atypical or viral pneumonia. Consider COVID-19. He was placed on supplemental O2. His treatment course includes: Remdesivir, Decadron, Bronchodilators, Pneumonia p rotocol, immune supporting supplements. Will restart home medications. Continue to monitor and follow up labs/imaging in the morning. Past Medical History Past Medical History: Arthritis, Coronary Artery Disease and Hypertension Past Surgical History Surgical History: Abdominal Surgery and Bowel Resection Family History Family Medical History: Coronary Artery Disease and Hypertension Social History Does patient currently use any type of tobacco product: No Have you used tobacco products in the last 12 months: No Type of Tobacco Use: None Does any household member use tobacco: No Alcohol Use: None Drug Use: None Medications Home Medications: No Known Drug Allergies Allergy (Verified 05/29/19 18:35) CONTINUE taking the following medications amlodipine 10 mg PO HS 11/29/19 [History] metoprolol succinate 100 mg PO HS 11/29/19 [History] [id number] K-lycop [Men's Multivitamin] 1 tab PO HS 11/29/19 [History] Labs Result Diagrams: 11/30/19 04:52 11/30/19 04:52 Labs: Laboratory WBC 6.5 X10^3/uL (3.6-10.0) 11/30/19 04:52 RBC 4.26 X10^6/uL (4.7-6.0) L 11/30/19 04:52 Hgb 13.9 g/dL (13.5-18.0) 11/30/19 04:52 Hct 40.1 % (42.0-54.0) L 11/30/19 04:52 MCV 94.2 fL (80.0-100.0) 11/30/19 04:52 MCH 32.7 pg (27.0-34.0) 11/30/19 04:52 MCHC 34.7 g/dL (33.0-35.0) 11/30/19 04:52 RDW 13.7 % (11.6-16.5) 11/30/19 04:52 Plt Count 219 X10^3/uL (150.0-450.0) 11/30/19 04:52 MPV 7.7 fL (7.4-11.0) 11/30/19 04:52 Neut % (Auto) 82.9 % (42.0-75.0) H 11/30/19 04:52 Lymph % (Auto) 6.9 % (21.0-51.0) L 11/30/19 04:52 [place] % (Auto) 10.1 % (0.0-13.0) 11/30/19 04:52 Eos % (Auto) 0.0 % (0.9-2.9) L 11/30/19 04:52 Baso % (Auto) 0.1 % (0.2-1.0) L 11/30/19 04:52 Neut # (Auto) 5.4 x10^3/uL (2.2-4.8) H 11/30/19 04:52 Lymph # (Auto) 0.5 X10^3/uL (1.3-2.9) L 11/30/19 04:52 [place] # (Auto) 0.7 x10^3/uL (0.3-0.8) 11/30/19 04:52 Eos # (Auto) 0.0 x10^3/uL (0.0-0.2) 11/30/19 04:52 Baso # (Auto) 0.0 X10^3/uL (0.0-0.1) 11/30/19 04:52 Absolute Nucleated RBC 0.0 /100WBC 11/30/19 04:52 Sample Site Rr 11/29/19 14:10 ABG pH 7.470 (7.35-7.45) H 11/29/19 14:10 ABG pCO2 35.0 mmHg (35.0-45.0) 11/29/19 14:10 ABG pO2 58.0 mmHg (80.0-100.0) L 11/29/19 14:10 ABG HCO3 25.5 mmol/L (22-26) 11/29/19 14:10 ABG O2 Saturation 92.0 % (90-100) 11/29/19 14:10 ABG Base Excess 2.0 mmol/L (-2.0-2.0) 11/29/19 14:10 Domenico Test Pos 11/29/19 14:10 A-a Gradient 48.0 mmHg 11/29/19 14:10 FiO2 21.0 11/29/19 14:10 Blood Gas Comments Pt [facility] 11/29/19 14:10 Sodium 136 mmol/L (136-145) 11/30/19 04:52 Corrected Sodium 137 mmol/L (136-145) 11/30/19 04:52 Potassium 3.8 mmol/L (3.5-5.1) 11/30/19 04:52 Chloride 101 mmol/L (98-107) 11/30/19 04:52 Carbon Dioxide 26.2 mmol/L (21-32) 11/30/19 04:52 BUN 18 mg/dL (7-18) 11/30/19 04:52 Creatinine 1.02 mg/dL (0.70-1.30) 11/30/19 04:52 Est GFR (MDRD) Af Amer > 60 (>60) 11/30/19 04:52 Est GFR (MDRD) Non-Af > 60 (>60) 11/30/19 04:52 Glucose 128 mg/dL (65-99) H 11/30/19 04:52 Lactic Acid 1.7 mmol/L (0.4-2.0) 11/29/19 14:10 Calcium 9.0 mg/dL (8.5-10.1) 11/30/19 04:52 Corrected Calcium 10.0 mg/dL (8.5-10.1) 11/30/19 04:52 Ferritin 468 ng/mL (26-388) H 11/29/19 14:10 Total Bilirubin 0.40 mg/dL (0.2-1.0) 11/30/19 04:52 AST 28 Units/L (15-37) 11/30/19 04:52 ALT 42 Units/L (12-78) 11/30/19 04:52 Alkaline Phosphatase 59 Units/L (46-116) 11/30/19 04:52 Creatine Kinase 60 Units/L (39-308) 11/29/19 14:10 CK-MB (CK-2) < 1.0 ng/mL (0-4.0) 11/29/19 14:10 CK/CKMB % Calc 1.7 % (<4) 11/29/19 14:10 Troponin I < 0.02 ng/mL (0-1.5) 11/29/19 14:10 C-Reactive Protein 27.70 mg/L (0-3.0) H 11/29/19 14:10 Total Protein 7.2 g/dL (6.4-8.2) 11/30/19 04:52 Albumin 2.8 g/dL (3.4-5.0) L 11/30/19 04:52 Globulin 4.4 g/dL (2.5-4.5) 11/30/19 04:52 Albumin/Globulin Ratio 0.6 Ratio (1.1-2.1) L 11/30/19 04:52 Review of Systems Constitutional: Fever, Chills and Weakness Eyes: No Symptoms Reported ENT: No Symptoms Reported Respiratory: Cough, Shortness of Breath and Wheezing Cardiovascular: No Symptoms Reported Gastrointestinal: No Symptoms Reported Genitourinary: No Symptoms Reported Musculoskeletal: No Symptoms Reported Skin: No Symptoms Reported Neurological: No Symptoms Reported Physical Exam Vital Signs: Temperature 98.2 F Pulse Rate [Right Brachial] 58 Pulse Rate 57 Respiratory Rate 22 Blood Pressure [Left Arm] 144/67 Blood Pressure [Standing] 99/58 Blood Pressure [Sitting] 100/61 Blood Pressure [Lying] 105/60 Blood Pressure 144/67 O2 Sat by Pulse Oximetry 93 Oriented: Normal Eyes: Normal Ear: Normal Nose: Normal Throat: Normal Respiratory: Diminished Throughout and Rales Throughout Cardiovascular: Normal : Normal Auscultation: Bowel Sounds: Normal Palpation: Normal Tenderness: Normal Skin: Normal Musculoskeletal: Normal Psychiatric: Normal Mood Description: Calm Speech Pattern: Clear Assessment/Plan (1) Pneumonia due to COVID-19 virus: Status: Acute Plan: Supplemental O2, Remdesivir, Decadron, Bronchodilators Pneumonia protocol Review H&P Reviewed: Yes Patient was examined?: Yes
[2019-11-30] MEDS ORDERED: VITAMIN A PO SCH (09:00)
[2019-11-30] MEDS ORDERED: VITAMIN D (1.25MG) PO SCH (09:00)
[2019-11-30] MEDS ORDERED: ELIQUIS PO SCH (09:00)
[2019-11-30] MEDS ORDERED: ZOFRAN INJ 4 MG VIAL IVP SCH (09:00)
[2019-11-30] MEDS: PULMICORT NEB TX 0.5 MG NEB SCH ×2 (09:00→21:23)
[2019-11-30] MEDS: COZAAR PO SCH (09:24)
[2019-11-30] MEDS: DECADRON TAB PO SCH (09:25)
[2019-11-30] MEDS: ROBITUSSIN DM PO SCH ×4 (09:26→21:43)
[2019-11-30] MEDS: REMDESIVIR (INVESTIGATIONAL DRUG GS-5734) 100 MG in NS 250 ML IV 250 ML IV SCH (09:26)
[2019-11-30] MEDS: TRICOR TAB 160 MG PO SCH (09:27)
[2019-11-30] MEDS: ZINC SULFATE PO SCH ×2 (09:28→21:41)
[2019-11-30] MEDS ORDERED: ZOFRAN INJ 4 MG VIAL IVP PRN (09:57)
[2019-11-30] MEDS ORDERED: LOVENOX INJ 30 MG SYR SC ONE (13:16)
[2019-11-30] MEDS: ROCEPHIN VIAL 1 GRAM 1 G in NS 100 ML IV + SPIKE MINIBAG* 100 ML IV SCH (17:19)
[2019-11-30] MEDS ORDERED: LEXAPRO ONE (20:41)
[2019-11-30] MEDS ORDERED: TOPROL XL PO ONE (20:41)
[2019-11-30] MEDS: NS 1000 ML 1,000 ML IV SCH (21:40)
[2019-11-30] MEDS: ELIQUIS PO SCH (21:41)
[2019-11-30] MEDS: TOPROL XL PO SCH (21:41)
[2019-11-30] MEDS: PROTONIX TAB 40 MG PO SCH (21:41)
[2019-11-30] MEDS: LEXAPRO PO SCH (21:42)
[2019-11-30] MEDS: LIPITOR TAB 40 MG PO SCH (21:42)
[2019-11-30] MEDS: NORVASC TAB 10 MG PO SCH (21:43)
[2019-12-01] MEDS: ASCORBIC ACID INJ MULTI-DOSE VIAL 1,500 MG in NS 100 ML IV 100 ML IV SCH ×4 (04:00→21:55)
[2019-12-01] MEDS: XOPENEX 1.25 MG/3 ML NEBULE NEB SCH ×3 (06:12→21:22)
--- NOTE | 2019-12-01 08:16 | PCM.PROG ---
Progress Note Progress Note for Day of Date of Exam: 12/01/19 Subjective Subjective: Pt is a 79 yo m pmhx Afib, HTN, HLD, admitted for COVID19 pneumonia(positive on 11/26/19). This morning he is sitting up in bed eating breakfast, he reports feeling a little better and not as fatigued as before. Labs/imaging: Wbc 10.7, Hgb 14, Plt 269, Na 137, K 3.6, Cr 1.16, Gluc 157. CRP 27>40, CXR: Likely mild worsening of bilateral pneumonia. He is currently on 2L supplemental O2. His treatment course includes: Remdesivir, Solumedrol, Abx: Rocephin + Azithromycin, Bronchodilators, Pneumonia protocol, immune supporting supplements. Convalescent plasma ordered. SputumCx positive for E. coli, susceptible to current antibiotics. Continue to monitor and follow up labs/imaging in the morning. Past Medical Family Social History Past Med/Fam/Surg Hx: No changes since H&P Allergies: Allergies No Known Drug Allergies Allergy (Verified 05/29/19 18:35) Review of Systems ROS: No change since H&P Vital Signs and I&O's Vital Signs: Temperature 98.4 F Pulse Rate [Right Brachial] 58 Pulse Rate 61 Respiratory Rate 22 Blood Pressure [Left Arm] 144/67 Blood Pressure [Standing] 99/58 Blood Pressure [Sitting] 100/61 Blood Pressure [Lying] 105/60 Blood Pressure 138/74 O2 Sat by Pulse Oximetry 92 Intake and Output: Intake & Output 11/28/19 11/29/19 11/30/19 12/01/19 23:59 23:59 23:59 23:59 Intake Total 620 / 620 2088 / 2088 1060 / 1060 Output Total 1400 / 1400 500 / 500 Balance 620 / 620 688 / 688 560 / 560 Physical Exam Oriented: Normal Eyes: Normal Ear: Normal Nose: Normal Throat: Normal Respiratory: Diminished and Rales Cardiovascular: Normal : Normal Auscultation: Bowel Sounds: Normal Tenderness: Normal Skin: Normal Musculoskeletal: Normal Psychiatric: Normal Mood Description: Calm Speech Pattern: Clear Laboratory and Diagnostics Result Diagrams: 12/01/19 08:19 12/01/19 08:19 Labs: Laboratory WBC 6.5 X10^3/uL (3.6-10.0) 11/30/19 04:52 RBC 4.26 X10^6/uL (4.7-6.0) L 11/30/19 04:52 Hgb 13.9 g/dL (13.5-18.0) 11/30/19 04:52 Hct 40.1 % (42.0-54.0) L 11/30/19 04:52 MCV 94.2 fL (80.0-100.0) 11/30/19 04:52 MCH 32.7 pg (27.0-34.0) 11/30/19 04:52 MCHC 34.7 g/dL (33.0-35.0) 11/30/19 04:52 RDW 13.7 % (11.6-16.5) 11/30/19 04:52 Plt Count 219 X10^3/uL (150.0-450.0) 11/30/19 04:52 MPV 7.7 fL (7.4-11.0) 11/30/19 04:52 Neut % (Auto) 82.9 % (42.0-75.0) H 11/30/19 04:52 Lymph % (Auto) 6.9 % (21.0-51.0) L 11/30/19 04:52 [place] % (Auto) 10.1 % (0.0-13.0) 11/30/19 04:52 Eos % (Auto) 0.0 % (0.9-2.9) L 11/30/19 04:52 Baso % (Auto) 0.1 % (0.2-1.0) L 11/30/19 04:52 Neut # (Auto) 5.4 x10^3/uL (2.2-4.8) H 11/30/19 04:52 Lymph # (Auto) 0.5 X10^3/uL (1.3-2.9) L 11/30/19 04:52 [place] # (Auto) 0.7 x10^3/uL (0.3-0.8) 11/30/19 04:52 Eos # (Auto) 0.0 x10^3/uL (0.0-0.2) 11/30/19 04:52 Baso # (Auto) 0.0 X10^3/uL (0.0-0.1) 11/30/19 04:52 Absolute Nucleated RBC 0.0 /100WBC 11/30/19 04:52 Sample Site Rr 11/29/19 14:10 ABG pH 7.470 (7.35-7.45) H 11/29/19 14:10 ABG pCO2 35.0 mmHg (35.0-45.0) 11/29/19 14:10 ABG pO2 58.0 mmHg (80.0-100.0) L 11/29/19 14:10 ABG HCO3 25.5 mmol/L (22-26) 11/29/19 14:10 ABG O2 Saturation 92.0 % (90-100) 11/29/19 14:10 ABG Base Excess 2.0 mmol/L (-2.0-2.0) 11/29/19 14:10 Domenico Test Pos 11/29/19 14:10 A-a Gradient 48.0 mmHg 11/29/19 14:10 FiO2 21.0 11/29/19 14:10 Blood Gas Comments Pt [email or web address] 11/29/19 14:10 Sodium 136 mmol/L (136-145) 11/30/19 04:52 Corrected Sodium 137 mmol/L (136-145) 11/30/19 04:52 Potassium 3.8 mmol/L (3.5-5.1) 11/30/19 04:52 Chloride 101 mmol/L (98-107) 11/30/19 04:52 Carbon Dioxide 26.2 mmol/L (21-32) 11/30/19 04:52 BUN 18 mg/dL (7-18) 11/30/19 04:52 Creatinine 1.02 mg/dL (0.70-1.30) 11/30/19 04:52 Est GFR (MDRD) Af Amer > 60 (>60) 11/30/19 04:52 Est GFR (MDRD) Non-Af > 60 (>60) 11/30/19 04:52 Glucose 128 mg/dL (65-99) H 11/30/19 04:52 Lactic Acid 1.7 mmol/L (0.4-2.0) 11/29/19 14:10 Calcium 9.0 mg/dL (8.5-10.1) 11/30/19 04:52 Corrected Calcium 10.0 mg/dL (8.5-10.1) 11/30/19 04:52 Ferritin 468 ng/mL (26-388) H 11/29/19 14:10 Total Bilirubin 0.40 mg/dL (0.2-1.0) 11/30/19 04:52 AST 28 Units/L (15-37) 11/30/19 04:52 ALT 42 Units/L (12-78) 11/30/19 04:52 Alkaline Phosphatase 59 Units/L (46-116) 11/30/19 04:52 Creatine Kinase 60 Units/L (39-308) 11/29/19 14:10 CK-MB (CK-2) < 1.0 ng/mL (0-4.0) 11/29/19 14:10 CK/CKMB % Calc 1.7 % (<4) 11/29/19 14:10 Troponin I < 0.02 ng/mL (0-1.5) 11/29/19 14:10 C-Reactive Protein 27.70 mg/L (0-3.0) H 11/29/19 14:10 Total Protein 7.2 g/dL (6.4-8.2) 11/30/19 04:52 Albumin 2.8 g/dL (3.4-5.0) L 11/30/19 04:52 Globulin 4.4 g/dL (2.5-4.5) 11/30/19 04:52 Albumin/Globulin Ratio 0.6 Ratio (1.1-2.1) L 11/30/19 04:52 Blood Type O POSITIVE 11/30/19 14:28 Plan (1) Pneumonia due to COVID-19 virus: Status: Acute Plan: Supplemental O2, Remdesivir, Solumedrol, Abx: Rocephin + Azithromycin Bronchodilators Pneumonia protocol
[2019-12-01] MEDS: COZAAR PO SCH (08:19)
[2019-12-01] MEDS: ELIQUIS PO SCH ×2 (08:19→21:55)
[2019-12-01] MEDS: DECADRON TAB PO SCH (08:19)
[2019-12-01] MEDS: ROBITUSSIN DM PO SCH ×4 (08:19→21:57)
[2019-12-01] MEDS: TRICOR TAB 160 MG PO SCH (08:20)
[2019-12-01] MEDS: VITAMIN A PO SCH (08:20)
[2019-12-01] MEDS: VITAMIN D3 125 mcg (5,000 UNITS) PO SCH (08:20)
[2019-12-01] MEDS: ZINC SULFATE PO SCH ×2 (08:21→21:57)
[2019-12-01 08:45] LABS: BASOPHILS % (AUTO) 0 % (0.2-1.0); HEMATOCRIT 40.9 % (42.0-54.0); LYMPHOCYTES # (AUTO) 0.5 X10^3/uL (1.3-2.9); LYMPHOCYTES % (AUTO) 4.9 % (21.0-51.0); MEAN CORPUSCULAR HEMOGLOBIN 32.5 pg (27.0-34.0); MEAN CORPUSCULAR HGB CONC 34.3 g/dL (33.0-35.0); MEAN CORPUSCULAR VOLUME 94.8 fL (80.0-100.0); MEAN PLATELET VOLUME 7.5 fL (7.4-11.0); MONOCYTES # (AUTO) 0.5 x10^3/uL (0.3-0.8); MONOCYTES % (AUTO) 4.7 % (0.0-13.0); NEUTROPHILS # (AUTO) 9.7 x10^3/uL (2.2-4.8); NEUTROPHILS % (AUTO) 90.4 % (42.0-75.0); PLATELET COUNT 269 X10^3/uL (150.0-450.0); RED BLOOD COUNT 4.31 X10^6/uL (4.7-6.0); RED CELL DISTRIBUTION WIDTH 13.7 % (11.6-16.5); WHITE BLOOD COUNT 10.7 X10^3/uL (3.6-10.0)
[2019-12-01 08:58] LABS: ALANINE AMINOTRANSFERASE 38 Units/L (12-78); ALBUMIN 2.6 g/dL (3.4-5.0); ALKALINE PHOSPHATASE 62 Units/L (46-116); ASPARTATE AMINO TRANSFERASE 29 Units/L (15-37); BLOOD UREA NITROGEN 17 mg/dL (7-18); CALCIUM 8.8 mg/dL (8.5-10.1); CHLORIDE 101 mmol/L (98-107); COR CA(FOR HYPOALB) 9.9 mg/dL (8.5-10.1); COR NA(FOR HYPERGLY) 138 mmol/L (136-145); CREATININE 1.16 mg/dL (0.70-1.30); SODIUM 137 mmol/L (136-145); eGFR NON BLACK RACES > 60 (>60)
[2019-12-01] MEDS: PULMICORT NEB TX 0.5 MG NEB SCH ×2 (09:25→21:21)
[2019-12-01 09:37] LABS: PLATELET MORPHOLOGY COMMENT NORMAL (NORMAL)
[2019-12-01] MEDS: REMDESIVIR (INVESTIGATIONAL DRUG GS-5734) 100 MG in NS 250 ML IV 250 ML IV SCH (09:44)
--- NOTE | 2019-12-01 09:57 | RAD ---
HISTORYCOVID PNASTUDYCHEST x-ray, 1 VIEWCOMPARISONX-ray 11/29/2019FINDINGSBilateral lung infiltrates have likely worsened since prior study. Findings probably from COVID-19 pneumonia. Heart is normal in size. Mild prominence of the superior mediastinum is likely due to vascular tortuosity and is a chronic appearance no pneumothorax or pleural effusion is seen.IMPRESSIONLikely mild worsening of bilateral pneumonia.Electronically signed by: Alphonso Cantor (Dec 01, 2019 09:56:55)
[2019-12-01] MEDS: ROCEPHIN VIAL 1 GRAM 1 G in NS 100 ML IV + SPIKE MINIBAG* 100 ML IV SCH (11:25)
[2019-12-01] MEDS: ZITHROMAX INJ 500 MG VIAL 500 MG in NS 250 ML IV 250 ML IV SCH (12:19)
[2019-12-01] MEDS: SOLU-Medrol 125 MG VIAL IVP SCH ×2 (13:57→21:55)
[2019-12-01] MEDS: HumuLIN R SC PRN (17:02)
[2019-12-01] MEDS ORDERED: BENADRYL INJ 50 MG VIAL ONE (18:01)
[2019-12-01] MEDS ORDERED: BENADRYL INJ 50 MG VIAL IV ONE (18:01)
[2019-12-01] MEDS ORDERED: TOPROL XL PO ONE (20:40)
[2019-12-01] MEDS ORDERED: LEXAPRO ONE (20:41)
[2019-12-01] MEDS: LEXAPRO PO SCH (21:55)
[2019-12-01] MEDS: NS 1000 ML 1,000 ML IV SCH (21:55)
[2019-12-01] MEDS: PROTONIX TAB 40 MG PO SCH (21:56)
[2019-12-01] MEDS: NORVASC TAB 10 MG PO SCH (21:56)
[2019-12-01] MEDS: LIPITOR TAB 40 MG PO SCH (21:56)
[2019-12-01] MEDS: TOPROL XL PO SCH (21:57)
[2019-12-02] MEDS: ASCORBIC ACID INJ MULTI-DOSE VIAL 1,500 MG in NS 100 ML IV 100 ML IV SCH ×4 (03:57→21:30)
[2019-12-02 05:32] LABS: BASOPHILS % (AUTO) 0.2 % (0.2-1.0); HEMATOCRIT 37.2 % (42.0-54.0); HEMOGLOBIN 12.7 g/dL (13.5-18.0); LYMPHOCYTES # (AUTO) 0.5 X10^3/uL (1.3-2.9); LYMPHOCYTES % (AUTO) 8.1 % (21.0-51.0); MEAN CORPUSCULAR HEMOGLOBIN 32.6 pg (27.0-34.0); MEAN CORPUSCULAR HGB CONC 34.3 g/dL (33.0-35.0); MEAN CORPUSCULAR VOLUME 95.2 fL (80.0-100.0); MEAN PLATELET VOLUME 8.1 fL (7.4-11.0); MONOCYTES # (AUTO) 0.6 x10^3/uL (0.3-0.8); MONOCYTES % (AUTO) 9.8 % (0.0-13.0); NEUTROPHILS # (AUTO) 4.8 x10^3/uL (2.2-4.8); NEUTROPHILS % (AUTO) 81.9 % (42.0-75.0); PLATELET COUNT 259 X10^3/uL (150.0-450.0); RED CELL DISTRIBUTION WIDTH 13.5 % (11.6-16.5); WHITE BLOOD COUNT 5.9 X10^3/uL (3.6-10.0)
[2019-12-02] MEDS: XOPENEX 1.25 MG/3 ML NEBULE NEB SCH ×3 (05:50→20:35)
[2019-12-02] MEDS: SOLU-Medrol 125 MG VIAL IVP SCH ×3 (05:58→21:31)
[2019-12-02 06:30] LABS: ALANINE AMINOTRANSFERASE 29 Units/L (12-78); ALBUMIN 2.4 g/dL (3.4-5.0); ALKALINE PHOSPHATASE 55 Units/L (46-116); ASPARTATE AMINO TRANSFERASE 23 Units/L (15-37); BLOOD UREA NITROGEN 20 mg/dL (7-18); CALCIUM 8.8 mg/dL (8.5-10.1); CHLORIDE 104 mmol/L (98-107); COR CA(FOR HYPOALB) 10.1 mg/dL (8.5-10.1); COR NA(FOR HYPERGLY) 139 mmol/L (136-145); CREATININE 0.94 mg/dL (0.70-1.30); SODIUM 138 mmol/L (136-145); TOTAL PROTEIN 6.3 g/dL (6.4-8.2); eGFR NON BLACK RACES > 60 (>60)
[2019-12-02] MEDS: ELIQUIS PO SCH ×2 (08:27→21:32)
[2019-12-02] MEDS: COZAAR PO SCH (08:27)
[2019-12-02] MEDS: VITAMIN A PO SCH (08:28)
[2019-12-02] MEDS: ROBITUSSIN DM PO SCH ×4 (08:28→21:31)
[2019-12-02] MEDS: VITAMIN D3 125 mcg (5,000 UNITS) PO SCH (08:28)
[2019-12-02] MEDS: ZINC SULFATE PO SCH ×2 (08:28→21:31)
--- NOTE | 2019-12-02 09:25 | PCM.PROG ---
Progress Note Progress Note for Day of Date of Exam: 12/02/19 Subjective Subjective: Pt is a 79 yo m pmhx Afib, HTN, HLD, admitted for COVID19 pneumonia(positive on 11/26/19). This morning he laying in bed reports some respiratory improvement from yesterday. Labs/imaging: Wbc 10.7>5.9, Hgb 12.7, Plt 259, Na 138, K 4, Cr 0.94, Gluc 157. CRP 40>23.4. He is currently on 2L supplemental O2. His treatment course includes: Remdesivir, Solumedrol, Abx: Rocephin + Azithromycin, Bronchodilators, Pneumonia protocol, immune supporting supplements. He received convalescent plasma today. SputumCx positive for E. coli, susceptible to current antibiotics. Will try to wean off supplemental O2 today. Continue to monitor and follow up labs/imaging in the morning. Past Medical Family Social History Past Med/Fam/Surg Hx: No changes since H&P Allergies: Allergies No Known Drug Allergies Allergy (Verified 05/29/19 18:35) Review of Systems ROS: No change since H&P Vital Signs and I&O's Vital Signs: Temperature 98.5 F Pulse Rate [Right Brachial] 58 Pulse Rate 53 Respiratory Rate 21 Blood Pressure [Left Arm] 144/67 Blood Pressure [Standing] 99/58 Blood Pressure [Sitting] 100/61 Blood Pressure [Lying] 105/60 Blood Pressure 131/65 O2 Sat by Pulse Oximetry 94 Intake and Output: Intake & Output 11/29/19 11/30/19 12/01/19 12/02/19 23:59 23:59 23:59 23:59 Intake Total 620 / 620 2088 / 2088 3142 / 3142 860 / 860 Output Total 1400 / 1400 1200 / 1200 800 / 800 Balance 620 / 620 688 / 688 1942 / 1942 60 / 60 Physical Exam Oriented: Normal Eyes: Normal Ear: Normal Nose: Normal Throat: Normal Respiratory: Diminished and Rales Cardiovascular: Normal : Normal Auscultation: Bowel Sounds: Normal Tenderness: Normal Skin: Normal Musculoskeletal: Normal Psychiatric: Normal Mood Description: Calm Speech Pattern: Clear and Appropriate Laboratory and Diagnostics Result Diagrams: 12/02/19 04:58 12/02/19 04:58 Labs: 11/29/19 14:20 Blood Blood Culture - Preliminary 11/29/19 14:10 Blood Blood Culture - Preliminary Laboratory WBC 5.9 X10^3/uL (3.6-10.0) 12/02/19 04:58 RBC 3.90 X10^6/uL (4.7-6.0) L 12/02/19 04:58 Hgb 12.7 g/dL (13.5-18.0) L 12/02/19 04:58 Hct 37.2 % (42.0-54.0) L 12/02/19 04:58 MCV 95.2 fL (80.0-100.0) 12/02/19 04:58 MCH 32.6 pg (27.0-34.0) 12/02/19 04:58 MCHC 34.3 g/dL (33.0-35.0) 12/02/19 04:58 RDW 13.5 % (11.6-16.5) 12/02/19 04:58 Plt Count 259 X10^3/uL (150.0-450.0) 12/02/19 04:58 Plt Count Comment Adequate (ADEQUATE) 12/01/19 08:19 MPV 8.1 fL (7.4-11.0) 12/02/19 04:58 Neut % (Auto) 81.9 % (42.0-75.0) H 12/02/19 04:58 Lymph % (Auto) 8.1 % (21.0-51.0) L 12/02/19 04:58 [place] % (Auto) 9.8 % (0.0-13.0) 12/02/19 04:58 Eos % (Auto) 0.0 % (0.9-2.9) L 12/02/19 04:58 Baso % (Auto) 0.2 % (0.2-1.0) 12/02/19 04:58 Neut # (Auto) 4.8 x10^3/uL (2.2-4.8) 12/02/19 04:58 Lymph # (Auto) 0.5 X10^3/uL (1.3-2.9) L 12/02/19 04:58 [place] # (Auto) 0.6 x10^3/uL (0.3-0.8) 12/02/19 04:58 Eos # (Auto) 0.0 x10^3/uL (0.0-0.2) 12/02/19 04:58 Baso # (Auto) 0.0 X10^3/uL (0.0-0.1) 12/02/19 04:58 Absolute Nucleated RBC 0.1 /100WBC 12/02/19 04:58 Total Counted 100 12/01/19 08:19 Neutrophils % (Manual) 88 % (39-76) H 12/01/19 08:19 Lymphocytes % (Manual) 9 % (13-43) L 12/01/19 08:19 Monocytes % (Manual) 3 % (4-9) L 12/01/19 08:19 Plt Morphology Comment Normal (NORMAL) 12/01/19 08:19 RBC Morphology Normal (NORMAL) 12/01/19 08:19 Sample Site Rr 11/29/19 14:10 ABG pH 7.470 (7.35-7.45) H 11/29/19 14:10 ABG pCO2 35.0 mmHg (35.0-45.0) 11/29/19 14:10 ABG pO2 58.0 mmHg (80.0-100.0) L 11/29/19 14:10 ABG HCO3 25.5 mmol/L (22-26) 11/29/19 14:10 ABG O2 Saturation 92.0 % (90-100) 11/29/19 14:10 ABG Base Excess 2.0 mmol/L (-2.0-2.0) 11/29/19 14:10 Domenico Test Pos 11/29/19 14:10 A-a Gradient 48.0 mmHg 11/29/19 14:10 FiO2 21.0 11/29/19 14:10 Blood Gas Comments Pt [facility] 11/29/19 14:10 Sodium 138 mmol/L (136-145) 12/02/19 04:58 Corrected Sodium 139 mmol/L (136-145) 12/02/19 04:58 Potassium 4.0 mmol/L (3.5-5.1) 12/02/19 04:58 Chloride 104 mmol/L (98-107) 12/02/19 04:58 Carbon Dioxide 23.0 mmol/L (21-32) 12/02/19 04:58 BUN 20 mg/dL (7-18) H 12/02/19 04:58 Creatinine 0.94 mg/dL (0.70-1.30) 12/02/19 04:58 Est GFR (MDRD) Af Amer > 60 (>60) 12/02/19 04:58 Est GFR (MDRD) Non-Af > 60 (>60) 12/02/19 04:58 Glucose 157 mg/dL (65-99) H 12/02/19 04:58 POC Glucose (mg/dL) 145 mg/dL (65-99) H 12/02/19 04:57 Lactic Acid 1.7 mmol/L (0.4-2.0) 11/29/19 14:10 Calcium 8.8 mg/dL (8.5-10.1) 12/02/19 04:58 Corrected Calcium 10.1 mg/dL (8.5-10.1) 12/02/19 04:58 Ferritin 468 ng/mL (26-388) H 11/29/19 14:10 Total Bilirubin 0.40 mg/dL (0.2-1.0) 12/02/19 04:58 AST 23 Units/L (15-37) 12/02/19 04:58 ALT 29 Units/L (12-78) 12/02/19 04:58 Alkaline Phosphatase 55 Units/L (46-116) 12/02/19 04:58 Creatine Kinase 60 Units/L (39-308) 11/29/19 14:10 CK-MB (CK-2) < 1.0 ng/mL (0-4.0) 11/29/19 14:10 CK/CKMB % Calc 1.7 % (<4) 11/29/19 14:10 Troponin I < 0.02 ng/mL (0-1.5) 11/29/19 14:10 C-Reactive Protein 23.40 mg/L (0-3.0) H 12/02/19 04:58 Total Protein 6.3 g/dL (6.4-8.2) L 12/02/19 04:58 Albumin 2.4 g/dL (3.4-5.0) L 12/02/19 04:58 Globulin 3.9 g/dL (2.5-4.5) 12/02/19 04:58 Albumin/Globulin Ratio 0.6 Ratio (1.1-2.1) L 12/02/19 04:58 Blood Type O POSITIVE 11/30/19 14:28 Plan (1) Pneumonia due to COVID-19 virus: Status: Acute Plan: Supplemental O2, Remdesivir, Solumedrol, Abx: Rocephin + Azithromycin Received convalescent plasma x1 Bronchodilators Pneumonia protocol
[2019-12-02] MEDS: PULMICORT NEB TX 0.5 MG NEB SCH ×2 (09:30→20:35)
[2019-12-02] MEDS: ROCEPHIN VIAL 1 GRAM 1 G in NS 100 ML IV + SPIKE MINIBAG* 100 ML IV SCH (09:40)
[2019-12-02] MEDS: TRICOR TAB 160 MG PO SCH (09:41)
[2019-12-02] MEDS: REMDESIVIR (INVESTIGATIONAL DRUG GS-5734) 100 MG in NS 250 ML IV 250 ML IV SCH (09:50)
[2019-12-02] MEDS: ZITHROMAX INJ 500 MG VIAL 500 MG in NS 250 ML IV 250 ML IV SCH (11:13)
[2019-12-02] MEDS: HumuLIN R SC PRN ×2 (12:03→21:33)
[2019-12-02] MEDS ORDERED: TOPROL XL PO ONE (20:50)
[2019-12-02] MEDS ORDERED: LEXAPRO ONE (20:51)
[2019-12-02] MEDS: TOPROL XL PO SCH (21:32)
[2019-12-02] MEDS: PROTONIX TAB 40 MG PO SCH (21:32)
[2019-12-02] MEDS: LEXAPRO PO SCH (21:34)
[2019-12-02] MEDS: LIPITOR TAB 40 MG PO SCH (21:34)
[2019-12-02] MEDS: NORVASC TAB 10 MG PO SCH (21:34)
[2019-12-02] MEDS: NS 1000 ML 1,000 ML IV SCH (21:35)
[2019-12-03] MEDS: ASCORBIC ACID INJ MULTI-DOSE VIAL 1,500 MG in NS 100 ML IV 100 ML IV SCH ×4 (04:21→21:49)
[2019-12-03 05:18] LABS: BASOPHILS % (AUTO) 0 % (0.2-1.0); HEMATOCRIT 38.1 % (42.0-54.0); LYMPHOCYTES # (AUTO) 0.5 X10^3/uL (1.3-2.9); LYMPHOCYTES % (AUTO) 6.7 % (21.0-51.0); MEAN CORPUSCULAR HEMOGLOBIN 32.3 pg (27.0-34.0); MEAN CORPUSCULAR HGB CONC 34.2 g/dL (33.0-35.0); MEAN CORPUSCULAR VOLUME 94.5 fL (80.0-100.0); MEAN PLATELET VOLUME 7.8 fL (7.4-11.0); MONOCYTES # (AUTO) 0.5 x10^3/uL (0.3-0.8); MONOCYTES % (AUTO) 7.4 % (0.0-13.0); NEUTROPHILS # (AUTO) 6.2 x10^3/uL (2.2-4.8); NEUTROPHILS % (AUTO) 85.9 % (42.0-75.0); PLATELET COUNT 287 X10^3/uL (150.0-450.0); RED BLOOD COUNT 4.03 X10^6/uL (4.7-6.0); RED CELL DISTRIBUTION WIDTH 13.6 % (11.6-16.5); WHITE BLOOD COUNT 7.2 X10^3/uL (3.6-10.0)
[2019-12-03 05:38] LABS: ALANINE AMINOTRANSFERASE 33 Units/L (12-78); ALBUMIN 2.4 g/dL (3.4-5.0); ALKALINE PHOSPHATASE 58 Units/L (46-116); ASPARTATE AMINO TRANSFERASE 23 Units/L (15-37); BLOOD UREA NITROGEN 22 mg/dL (7-18); CALCIUM 8.8 mg/dL (8.5-10.1); CARBON DIOXIDE 25.7 mmol/L (21-32); CHLORIDE 102 mmol/L (98-107); COR CA(FOR HYPOALB) 10.1 mg/dL (8.5-10.1); COR NA(FOR HYPERGLY) 139 mmol/L (136-145); CREATININE 0.97 mg/dL (0.70-1.30); SODIUM 137 mmol/L (136-145); TOTAL PROTEIN 6.2 g/dL (6.4-8.2); eGFR NON BLACK RACES > 60 (>60)
[2019-12-03] MEDS: XOPENEX 1.25 MG/3 ML NEBULE NEB SCH ×3 (05:45→20:10)
[2019-12-03] MEDS: SOLU-Medrol 125 MG VIAL IVP SCH ×3 (05:52→21:51)
[2019-12-03] MEDS: COZAAR PO SCH (07:59)
[2019-12-03] MEDS: ROCEPHIN VIAL 1 GRAM 1 G in NS 100 ML IV + SPIKE MINIBAG* 100 ML IV SCH (07:59)
[2019-12-03] MEDS: ROBITUSSIN DM PO SCH ×4 (08:00→21:50)
[2019-12-03] MEDS: ELIQUIS PO SCH ×2 (08:00→21:49)
[2019-12-03] MEDS: REMDESIVIR (INVESTIGATIONAL DRUG GS-5734) 100 MG in NS 250 ML IV 250 ML IV SCH ×2 (08:00→09:07)
[2019-12-03] MEDS: VITAMIN A PO SCH (08:01)
[2019-12-03] MEDS: TRICOR TAB 160 MG PO SCH (08:01)
[2019-12-03] MEDS: VITAMIN D3 125 mcg (5,000 UNITS) PO SCH (08:01)
[2019-12-03] MEDS: ZINC SULFATE PO SCH ×2 (08:02→21:51)
[2019-12-03] MEDS: PULMICORT NEB TX 0.5 MG NEB SCH ×2 (09:40→20:10)
[2019-12-03] MEDS: ZITHROMAX INJ 500 MG VIAL 500 MG in NS 250 ML IV 250 ML IV SCH (10:45)
[2019-12-03] MEDS: HumuLIN R SC PRN ×3 (12:16→21:51)
--- NOTE | 2019-12-03 13:23 | PCM.PROG ---
Progress Note Progress Note for Day of Date of Exam: 12/03/19 Subjective Subjective: Pt is a 79 yo m pmhx Afib, HTN, HLD, admitted for COVID19 pneumonia(positive on 11/26/19). This morning he is sitting up in bed, no acute events overnight. Labs/imaging: Wbc 5.9>7.2, Hgb 13, Plt 287, Na 137, K 4.1, Cr 0.97, Gluc 167. CRP 23.4>11.6. CXR: stable bilateral peripheral infiltrates. He is currently on 2L supplemental O2. His treatment course includes: Remdesivir, Solumedrol, Abx: Rocephin + Azithromycin, Bronchodilators, Convalescent plasma x1(12/01), Pneumonia protocol, immune supporting supplements. SputumCx positive for E. coli, susceptible to current antibiotics. Will try to wean pt off supplement O2 and get ambulatory O2 today. Continue to monitor and follow up labs/imaging in the morning. Past Medical Family Social History Past Med/Fam/Surg Hx: No changes since H&P Allergies: Allergies No Known Drug Allergies Allergy (Verified 05/29/19 18:35) Review of Systems ROS: No change since H&P Vital Signs and I&O's Vital Signs: Temperature 98.2 F Pulse Rate [Right Brachial] 58 Pulse Rate 51 Respiratory Rate 20 Blood Pressure [Left Arm] 144/67 Blood Pressure [Standing] 99/58 Blood Pressure [Sitting] 100/61 Blood Pressure [Lying] 105/60 Blood Pressure 123/61 O2 Sat by Pulse Oximetry 95 Intake and Output: Intake & Output 11/30/19 12/01/19 12/02/19 12/03/19 23:59 23:59 23:59 23:59 Intake Total 2087 / 2087 3142 / 3142 3120 / 3120 1160 / 1160 Output Total 1400 / 1400 1200 / 1200 2700 / 2700 1050 / 1050 Balance 688 / 688 1942 / 1942 420 / 420 110 / 110 Physical Exam Oriented: Normal Eyes: Normal Ear: Normal Nose: Normal Throat: Normal Respiratory: Diminished and Rales Cardiovascular: Normal : Normal Auscultation: Bowel Sounds: Normal Tenderness: Normal Skin: Normal Musculoskeletal: Normal Psychiatric: Normal Mood Description: Calm Speech Pattern: Clear and Appropriate Laboratory and Diagnostics Result Diagrams: 12/03/19 04:08 12/03/19 04:08 Labs: 11/29/19 14:20 Blood Blood Culture - Preliminary 11/29/19 14:10 Blood Blood Culture - Preliminary Laboratory WBC 7.2 X10^3/uL (3.6-10.0) 12/03/19 04:08 RBC 4.03 X10^6/uL (4.7-6.0) L 12/03/19 04:08 Hgb 13.0 g/dL (13.5-18.0) L 12/03/19 04:08 Hct 38.1 % (42.0-54.0) L 12/03/19 04:08 MCV 94.5 fL (80.0-100.0) 12/03/19 04:08 MCH 32.3 pg (27.0-34.0) 12/03/19 04:08 MCHC 34.2 g/dL (33.0-35.0) 12/03/19 04:08 RDW 13.6 % (11.6-16.5) 12/03/19 04:08 Plt Count 287 X10^3/uL (150.0-450.0) 12/03/19 04:08 Plt Count Comment Adequate (ADEQUATE) 12/01/19 08:19 MPV 7.8 fL (7.4-11.0) 12/03/19 04:08 Neut % (Auto) 85.9 % (42.0-75.0) H 12/03/19 04:08 Lymph % (Auto) 6.7 % (21.0-51.0) L 12/03/19 04:08 [place] % (Auto) 7.4 % (0.0-13.0) 12/03/19 04:08 Eos % (Auto) 0.0 % (0.9-2.9) L 12/03/19 04:08 Baso % (Auto) 0 % (0.2-1.0) L 12/03/19 04:08 Neut # (Auto) 6.2 x10^3/uL (2.2-4.8) H 12/03/19 04:08 Lymph # (Auto) 0.5 X10^3/uL (1.3-2.9) L 12/03/19 04:08 [place] # (Auto) 0.5 x10^3/uL (0.3-0.8) 12/03/19 04:08 Eos # (Auto) 0.0 x10^3/uL (0.0-0.2) 12/03/19 04:08 Baso # (Auto) 0.0 X10^3/uL (0.0-0.1) 12/03/19 04:08 Absolute Nucleated RBC 0.0 /100WBC 12/03/19 04:08 Total Counted 100 12/01/19 08:19 Neutrophils % (Manual) 88 % (39-76) H 12/01/19 08:19 Lymphocytes % (Manual) 9 % (13-43) L 12/01/19 08:19 Monocytes % (Manual) 3 % (4-9) L 12/01/19 08:19 Plt Morphology Comment Normal (NORMAL) 12/01/19 08:19 RBC Morphology Normal (NORMAL) 12/01/19 08:19 Sample Site Rr 11/29/19 14:10 ABG pH 7.470 (7.35-7.45) H 11/29/19 14:10 ABG pCO2 35.0 mmHg (35.0-45.0) 11/29/19 14:10 ABG pO2 58.0 mmHg (80.0-100.0) L 11/29/19 14:10 ABG HCO3 25.5 mmol/L (22-26) 11/29/19 14:10 ABG O2 Saturation 92.0 % (90-100) 11/29/19 14:10 ABG Base Excess 2.0 mmol/L (-2.0-2.0) 11/29/19 14:10 Domenico Test Pos 11/29/19 14:10 A-a Gradient 48.0 mmHg 11/29/19 14:10 FiO2 21.0 11/29/19 14:10 Blood Gas Comments Pt [email or web address] 11/29/19 14:10 Sodium 137 mmol/L (136-145) 12/03/19 04:08 Corrected Sodium 139 mmol/L (136-145) 12/03/19 04:08 Potassium 4.1 mmol/L (3.5-5.1) 12/03/19 04:08 Chloride 102 mmol/L (98-107) 12/03/19 04:08 Carbon Dioxide 25.7 mmol/L (21-32) 12/03/19 04:08 BUN 22 mg/dL (7-18) H 12/03/19 04:08 Creatinine 0.97 mg/dL (0.70-1.30) 12/03/19 04:08 Est GFR (MDRD) Af Amer > 60 (>60) 12/03/19 04:08 Est GFR (MDRD) Non-Af > 60 (>60) 12/03/19 04:08 Glucose 167 mg/dL (65-99) H 12/03/19 04:08 POC Glucose (mg/dL) 201 mg/dL (65-99) H 12/03/19 11:24 Lactic Acid 1.7 mmol/L (0.4-2.0) 11/29/19 14:10 Calcium 8.8 mg/dL (8.5-10.1) 12/03/19 04:08 Corrected Calcium 10.1 mg/dL (8.5-10.1) 12/03/19 04:08 Ferritin 468 ng/mL (26-388) H 11/29/19 14:10 Total Bilirubin 0.40 mg/dL (0.2-1.0) 12/03/19 04:08 AST 23 Units/L (15-37) 12/03/19 04:08 ALT 33 Units/L (12-78) 12/03/19 04:08 Alkaline Phosphatase 58 Units/L (46-116) 12/03/19 04:08 Creatine Kinase 60 Units/L (39-308) 11/29/19 14:10 CK-MB (CK-2) < 1.0 ng/mL (0-4.0) 11/29/19 14:10 CK/CKMB % Calc 1.7 % (<4) 11/29/19 14:10 Troponin I < 0.02 ng/mL (0-1.5) 11/29/19 14:10 C-Reactive Protein 11.60 mg/L (0-3.0) H 12/03/19 04:08 Total Protein 6.2 g/dL (6.4-8.2) L 12/03/19 04:08 Albumin 2.4 g/dL (3.4-5.0) L 12/03/19 04:08 Globulin 3.8 g/dL (2.5-4.5) 12/03/19 04:08 Albumin/Globulin Ratio 0.6 Ratio (1.1-2.1) L 12/03/19 04:08 Blood Type O POSITIVE 11/30/19 14:28 Plan (1) Pneumonia due to COVID-19 virus: Status: Acute Plan: Supplemental O2, Remdesivir, Solumedrol, Abx: Rocephin + Azithromycin Received convalescent plasma x1 Bronchodilators Pneumonia protocol
--- NOTE | 2019-12-03 13:59 | RAD ---
HISTORYCOVID PNASTUDYCHEST, 1 VIEWCOMPARISONPortable chest December 01, 2019.FINDINGSThe trachea is midline. The cardiac silhouette is unremarkable . The bilateral peripheral infiltrates left greater than right are stable and unchanged from the study of December 01 2019. There is no effusion or pneumothorax.. The bony thorax is unremarkable.IMPRESSIONStable bilateral peripheral infiltrates consistent with COVID-19 pneumonia unchanged from December 01, 2019Electronically signed by: FATMATA MUNOZ (Dec 03, 2019 13:58:38)
[2019-12-03] MEDS ORDERED: TOPROL XL PO ONE (19:56)
[2019-12-03] MEDS ORDERED: LEXAPRO ONE (19:57)
[2019-12-03] MEDS: LEXAPRO PO SCH (21:49)
[2019-12-03] MEDS: NS 1000 ML 1,000 ML IV SCH (21:49)
[2019-12-03] MEDS: PROTONIX TAB 40 MG PO SCH (21:50)
[2019-12-03] MEDS: NORVASC TAB 10 MG PO SCH (21:50)
[2019-12-03] MEDS: TOPROL XL PO SCH (21:50)
[2019-12-03] MEDS: LIPITOR TAB 40 MG PO SCH (21:50)
[2019-12-04] MEDS: ASCORBIC ACID INJ MULTI-DOSE VIAL 1,500 MG in NS 100 ML IV 100 ML IV SCH ×2 (03:56→08:39)
[2019-12-04 05:26] LABS: BASOPHILS % (AUTO) 0.1 % (0.2-1.0); HEMATOCRIT 37.9 % (42.0-54.0); HEMOGLOBIN 13.1 g/dL (13.5-18.0); LYMPHOCYTES # (AUTO) 0.4 X10^3/uL (1.3-2.9); LYMPHOCYTES % (AUTO) 3.8 % (21.0-51.0); MEAN CORPUSCULAR HEMOGLOBIN 32.5 pg (27.0-34.0); MEAN CORPUSCULAR HGB CONC 34.7 g/dL (33.0-35.0); MEAN CORPUSCULAR VOLUME 93.8 fL (80.0-100.0); MEAN PLATELET VOLUME 7.6 fL (7.4-11.0); MONOCYTES # (AUTO) 1.1 x10^3/uL (0.3-0.8); MONOCYTES % (AUTO) 9.7 % (0.0-13.0); NEUTROPHILS # (AUTO) 9.4 x10^3/uL (2.2-4.8); NEUTROPHILS % (AUTO) 86.4 % (42.0-75.0); PLATELET COUNT 364 X10^3/uL (150.0-450.0); RED BLOOD COUNT 4.04 X10^6/uL (4.7-6.0); RED CELL DISTRIBUTION WIDTH 13.5 % (11.6-16.5); WHITE BLOOD COUNT 10.8 X10^3/uL (3.6-10.0)
[2019-12-04] MEDS: XOPENEX 1.25 MG/3 ML NEBULE NEB SCH (05:30)
[2019-12-04 05:56] LABS: ALANINE AMINOTRANSFERASE 33 Units/L (12-78); ALBUMIN 2.3 g/dL (3.4-5.0); ALKALINE PHOSPHATASE 55 Units/L (46-116); ASPARTATE AMINO TRANSFERASE 22 Units/L (15-37); BLOOD UREA NITROGEN 25 mg/dL (7-18); CALCIUM 8.6 mg/dL (8.5-10.1); CARBON DIOXIDE 25.1 mmol/L (21-32); CHLORIDE 103 mmol/L (98-107); COR NA(FOR HYPERGLY) 140 mmol/L (136-145); CREATININE 1.04 mg/dL (0.70-1.30); SODIUM 138 mmol/L (136-145); eGFR NON BLACK RACES > 60 (>60)
[2019-12-04] MEDS: SOLU-Medrol 125 MG VIAL IVP SCH (06:30)
[2019-12-04] MEDS: PULMICORT NEB TX 0.5 MG NEB SCH (09:05)
[2019-12-04] MEDS: ROCEPHIN VIAL 1 GRAM 1 G in NS 100 ML IV + SPIKE MINIBAG* 100 ML IV SCH (09:13)
--- NOTE | 2019-12-04 09:26 | W.DIS.FURT ---
Summary of Discharge Discharge Summary of Date Date of Exam: 12/04/19 Admission Date Date of Admission: 11/29/19 Admission Diagnosis Hospital Course: Pt is a 79 yo m pmhx Afib, HTN, HLD, admitted for COVID19 pneumonia(positive on 11/26/19). His treatment course included: Remdesivir, Solumedrol, Abx: Rocephin + Azithromycin, Bronchodilators, Convalescent plasma x1(12/01), Pneumonia protocol, immune supporting supplements. He had SputumCx positive for E. coli, susceptible to antibiotics he was receiving. Labs/imaging: Wbc 10.8, Hgb 13.1, Plt 364, Na 138, K 3.6, Cr 1.04, Gluc 164. CRP 23.4>11.6>5.4. CXR: stable bilateral peripheral infiltrates. While inpatient, he did require supplemental O2 up to 2L, but was able to be discharged with home oxygen to use prn. Pt was in stable condition on day of discharge. Rx prednisone course to complete. Instructed to follow up with pcp in 1 week. Vital Signs: Vital Signs (72 hours) 12/01/19 10:00 12/01/19 11:00 12/01/19 12:00 Temperature Pulse Rate 65 64 60 Respiratory Rate 26 H 28 H 27 H Blood Pressure 123/58 138/58 125/79 O2 Sat by Pulse Oximetry 92 L 92 L 100 12/01/19 13:25 12/01/19 14:42 12/01/19 15:00 Temperature Pulse Rate 60 61 60 Respiratory Rate 30 H 28 H Blood Pressure 123/59 116/58 O2 Sat by Pulse Oximetry 93 L 93 L 90 L 12/01/19 15:01 12/01/19 15:15 12/01/19 15:30 Temperature Pulse Rate 61 59 L 58 L Respiratory Rate 24 28 H 34 H Blood Pressure 116/58 O2 Sat by Pulse Oximetry 92 L 92 L 12/01/19 15:43 12/01/19 15:45 12/01/19 16:00 Temperature 98 F Pulse Rate 58 L 57 L 57 L Respiratory Rate 25 H 21 24 Blood Pressure 124/58 125/55 O2 Sat by Pulse Oximetry 94 L 93 L 93 L 12/01/19 16:15 12/01/19 16:30 12/01/19 16:45 Temperature Pulse Rate 57 L 56 L 61 Respiratory Rate 25 H 27 H Blood Pressure O2 Sat by Pulse Oximetry 92 L 92 L 12/01/19 17:00 12/01/19 17:15 12/01/19 17:30 Temperature Pulse Rate 59 L 59 L 60 Respiratory Rate 24 28 H 25 H Blood Pressure 129/62 O2 Sat by Pulse Oximetry 94 L 94 L 94 L 12/01/19 17:45 12/01/19 18:00 12/01/19 18:01 Temperature Pulse Rate 56 L 62 Respiratory Rate 26 H 28 H 27 H Blood Pressure 139/66 O2 Sat by Pulse Oximetry 93 L 95 12/01/19 18:13 12/01/19 18:15 12/01/19 18:19 Temperature Pulse Rate 60 58 L 58 L Respiratory Rate 28 H 33 H 40 H Blood Pressure 138/81 134/85 O2 Sat by Pulse Oximetry 95 94 L 94 L 12/01/19 18:23 12/01/19 18:27 12/01/19 18:30 Temperature Pulse Rate 60 61 62 Respiratory Rate 34 H 31 H 32 H Blood Pressure 140/72 144/72 128/72 O2 Sat by Pulse Oximetry 95 95 94 L 12/01/19 18:45 12/01/19 19:00 12/01/19 19:01 Temperature 97.9 F Pulse Rate 62 57 L Respiratory Rate 35 H 25 H 27 H Blood Pressure 115/59 O2 Sat by Pulse Oximetry 93 L 93 L 12/01/19 19:10 12/01/19 19:15 12/01/19 19:28 Temperature Pulse Rate 70 64 56 L Respiratory Rate 41 H 37 H 25 H Blood Pressure 115/59 O2 Sat by Pulse Oximetry 89 L 90 L 91 L 12/01/19 19:30 12/01/19 19:45 12/01/19 20:00 Temperature 97.9 F Pulse Rate 55 L 55 L 57 L Respiratory Rate 26 H 25 H 44 H Blood Pressure 115/59 O2 Sat by Pulse Oximetry 92 L 93 L 12/01/19 20:15 12/01/19 21:00 12/01/19 21:22 Temperature Pulse Rate 123 H 55 L 60 Respiratory Rate 22 Blood Pressure 112/58 O2 Sat by Pulse Oximetry 93 L 94 L 96 12/01/19 21:23 12/01/19 21:26 12/01/19 21:30 Temperature Pulse Rate 61 58 L Respiratory Rate 22 Blood Pressure 112/58 O2 Sat by Pulse Oximetry 92 L 95 12/01/19 21:45 12/01/19 22:00 12/01/19 22:15 Temperature Pulse Rate 61 62 60 Respiratory Rate 23 40 H 18 Blood Pressure O2 Sat by Pulse Oximetry 94 L 82 L 12/01/19 22:30 12/01/19 22:45 12/01/19 23:00 Temperature Pulse Rate 58 L 60 60 Respiratory Rate 26 H 27 H 24 Blood Pressure O2 Sat by Pulse Oximetry 94 L 12/01/19 23:15 12/02/19 00:00 12/02/19 01:00 Temperature 98.2 F Pulse Rate 61 57 L 58 L Respiratory Rate 18 18 20 Blood Pressure 127/72 120/70 O2 Sat by Pulse Oximetry 94 L 96 98 12/02/19 04:00 12/02/19 09:00 12/02/19 11:00 Temperature 98.5 F 97.3 F L Pulse Rate 53 L 48 L Respiratory Rate 21 25 H 18 Blood Pressure 131/65 126/60 119/61 O2 Sat by Pulse Oximetry 94 L 95 93 L 12/02/19 12:00 12/02/19 13:00 12/02/19 13:40 Temperature 97.8 F Pulse Rate 50 L 53 L 51 L Respiratory Rate 21 24 Blood Pressure 117/57 136/63 O2 Sat by Pulse Oximetry 92 L 95 95 12/02/19 14:00 12/02/19 14:30 12/02/19 14:45 Temperature Pulse Rate 51 L 60 58 L Respiratory Rate 32 H 27 H 23 Blood Pressure 117/57 O2 Sat by Pulse Oximetry 97 92 L 90 L 12/02/19 15:00 12/02/19 15:15 12/02/19 15:30 Temperature Pulse Rate 57 L 54 L 61 Respiratory Rate 22 23 34 H Blood Pressure 130/63 O2 Sat by Pulse Oximetry 92 L 91 L 91 L 12/02/19 15:45 12/02/19 16:00 12/02/19 16:15 Temperature 98.3 F Pulse Rate 53 L 56 L 56 L Respiratory Rate 30 H 23 28 H Blood Pressure 108/58 O2 Sat by Pulse Oximetry 90 L 94 L 94 L 12/02/19 16:30 12/02/19 16:45 12/02/19 17:00 Temperature Pulse Rate 55 L 56 L 57 L Respiratory Rate 32 H 30 H 26 H Blood Pressure 118/59 O2 Sat by Pulse Oximetry 92 L 92 L 98 12/02/19 17:01 12/02/19 17:15 12/02/19 17:30 Temperature Pulse Rate 58 L 60 54 L Respiratory Rate 22 20 21 Blood Pressure 118/59 O2 Sat by Pulse Oximetry 97 92 L 92 L 12/02/19 17:45 12/02/19 18:00 12/02/19 18:01 Temperature Pulse Rate 55 L 62 62 Respiratory Rate 25 H 25 H 32 H Blood Pressure 116/70 116/70 O2 Sat by Pulse Oximetry 93 L 95 94 L 12/02/19 18:15 12/02/19 18:30 12/02/19 18:45 Temperature Pulse Rate 64 61 60 Respiratory Rate 39 H 26 H 22 Blood Pressure O2 Sat by Pulse Oximetry 92 L 93 L 93 L 12/02/19 19:00 12/02/19 19:15 12/02/19 19:30 Temperature Pulse Rate 56 L 55 L 52 L Respiratory Rate 22 23 23 Blood Pressure 106/57 O2 Sat by Pulse Oximetry 91 L 94 L 92 L 12/02/19 19:45 12/02/19 20:00 12/02/19 20:01 Temperature 97.8 F Pulse Rate 52 L 55 L 55 L Respiratory Rate 22 25 H 23 Blood Pressure 131/65 131/65 O2 Sat by Pulse Oximetry 92 L 93 L 94 L 12/02/19 20:15 12/02/19 20:30 12/02/19 20:35 Temperature Pulse Rate 51 L 55 L 66 Respiratory Rate 27 H 25 H Blood Pressure O2 Sat by Pulse Oximetry 92 L 92 L 94 L 12/02/19 20:45 12/02/19 21:00 12/02/19 21:15 Temperature Pulse Rate 55 L 56 L 61 Respiratory Rate 22 12 22 Blood Pressure 117/56 O2 Sat by Pulse Oximetry 92 L 97 90 L 12/02/19 21:30 12/02/19 21:45 12/02/19 22:00 Temperature Pulse Rate 63 60 59 L Respiratory Rate 25 H 22 21 Blood Pressure 124/60 O2 Sat by Pulse Oximetry 91 L 92 L 92 L 12/02/19 22:15 12/02/19 22:30 12/02/19 22:45 Temperature Pulse Rate 58 L 59 L 58 L Respiratory Rate 23 32 H 24 Blood Pressure O2 Sat by Pulse Oximetry 89 L 91 L 93 L 12/02/19 23:00 12/02/19 23:15 12/02/19 23:30 Temperature Pulse Rate 56 L 52 L 54 L Respiratory Rate 22 21 38 H Blood Pressure 127/58 O2 Sat by Pulse Oximetry 92 L 91 L 93 L 12/02/19 23:45 12/03/19 00:00 12/03/19 00:15 Temperature 98.7 F Pulse Rate 57 L 56 L 56 L Respiratory Rate 25 H 29 H 16 Blood Pressure 115/57 O2 Sat by Pulse Oximetry 91 L 93 L 92 L 12/03/19 00:30 12/03/19 00:45 12/03/19 01:00 Temperature Pulse Rate 56 L 53 L 53 L Respiratory Rate 21 20 44 H Blood Pressure 108/50 O2 Sat by Pulse Oximetry 93 L 93 L 87 L 12/03/19 01:01 12/03/19 01:15 12/03/19 01:30 Temperature Pulse Rate 53 L 52 L 56 L Respiratory Rate 30 H 23 22 Blood Pressure 108/50 O2 Sat by Pulse Oximetry 88 L 93 L 93 L 12/03/19 01:45 12/03/19 02:00 12/03/19 02:15 Temperature Pulse Rate 52 L 51 L 51 L Respiratory Rate 26 H 19 22 Blood Pressure 138/67 O2 Sat by Pulse Oximetry 92 L 91 L 94 L 12/03/19 02:30 12/03/19 02:45 12/03/19 03:00 Temperature Pulse Rate 50 L 50 L 50 L Respiratory Rate 32 H 24 23 Blood Pressure O2 Sat by Pulse Oximetry 94 L 92 L 94 L 12/03/19 03:01 12/03/19 03:15 12/03/19 03:30 Temperature Pulse Rate 51 L 49 L 48 L Respiratory Rate 22 18 17 Blood Pressure 128/58 O2 Sat by Pulse Oximetry 94 L 94 L 93 L 12/03/19 03:45 12/03/19 04:00 12/03/19 04:01 Temperature 98.0 F Pulse Rate 48 L 50 L 49 L Respiratory Rate 25 H 27 H 28 H Blood Pressure 121/83 O2 Sat by Pulse Oximetry 95 93 L 93 L 12/03/19 04:15 12/03/19 05:00 12/03/19 06:00 Temperature Pulse Rate 51 L 50 L 51 L Respiratory Rate 21 20 19 Blood Pressure 148/68 130/69 O2 Sat by Pulse Oximetry 92 L 92 L 91 L 12/03/19 07:00 12/03/19 08:00 12/03/19 09:00 Temperature 98.2 F Pulse Rate 50 L 54 L 52 L Respiratory Rate 29 H 26 H 22 Blood Pressure 121/56 130/63 122/61 O2 Sat by Pulse Oximetry 93 L 95 12/03/19 10:00 12/03/19 11:00 12/03/19 12:00 Temperature 98 F Pulse Rate 53 L 51 L 51 L Respiratory Rate 22 27 H 20 Blood Pressure 121/67 134/63 123/61 O2 Sat by Pulse Oximetry 12/03/19 13:00 12/03/19 14:22 12/03/19 15:00 Temperature Pulse Rate 58 L 61 60 Respiratory Rate 26 H 24 26 H Blood Pressure 148/68 127/66 106/55 O2 Sat by Pulse Oximetry 97 92 L 91 L 12/03/19 16:00 12/03/19 17:00 12/03/19 18:00 Temperature 97.9 F Pulse Rate 60 60 54 L Respiratory Rate 22 21 24 Blood Pressure 139/65 139/69 144/67 O2 Sat by Pulse Oximetry 91 L 92 L 94 L 12/03/19 19:00 12/03/19 20:00 12/03/19 20:10 Temperature 98.4 F Pulse Rate 65 62 57 L Respiratory Rate 38 H 22 Blood Pressure 135/78 144/74 O2 Sat by Pulse Oximetry 90 L 94 L 94 L 12/03/19 21:00 12/03/19 22:00 12/03/19 23:00 Temperature Pulse Rate 60 61 56 L Respiratory Rate 21 27 H 26 H Blood Pressure 149/65 155/74 152/69 O2 Sat by Pulse Oximetry 93 L 95 93 L 12/04/19 00:00 12/04/19 01:00 12/04/19 02:00 Temperature 98.2 F Pulse Rate 54 L 59 L 51 L Respiratory Rate 22 22 19 Blood Pressure 141/65 144/65 159/70 O2 Sat by Pulse Oximetry 93 L 93 L 93 L 12/04/19 03:00 12/04/19 04:00 12/04/19 05:00 Temperature 97.7 F Pulse Rate 54 L 51 L 51 L Respiratory Rate 21 18 18 Blood Pressure 181/77 144/67 142/67 O2 Sat by Pulse Oximetry 92 L 90 L 90 L 12/04/19 06:00 12/04/19 07:00 Temperature Pulse Rate 50 L 49 L Respiratory Rate 20 21 Blood Pressure 137/69 O2 Sat by Pulse Oximetry 92 L 94 L Labs: Laboratory Last Values WBC 10.8 X10^3/uL (3.6-10.0) H 12/04/19 04:07 RBC 4.04 X10^6/uL (4.7-6.0) L 12/04/19 04:07 Hgb 13.1 g/dL (13.5-18.0) L 12/04/19 04:07 Hct 37.9 % (42.0-54.0) L 12/04/19 04:07 MCV 93.8 fL (80.0-100.0) 12/04/19 04:07 MCH 32.5 pg (27.0-34.0) 12/04/19 04:07 MCHC 34.7 g/dL (33.0-35.0) 12/04/19 04:07 RDW 13.5 % (11.6-16.5) 12/04/19 04:07 Plt Count 364 X10^3/uL (150.0-450.0) 12/04/19 04:07 Plt Count Comment Adequate (ADEQUATE) 12/01/19 08:19 MPV 7.6 fL (7.4-11.0) 12/04/19 04:07 Neut % (Auto) 86.4 % (42.0-75.0) H 12/04/19 04:07 Lymph % (Auto) 3.8 % (21.0-51.0) L 12/04/19 04:07 [place] % (Auto) 9.7 % (0.0-13.0) 12/04/19 04:07 Eos % (Auto) 0.0 % (0.9-2.9) L 12/04/19 04:07 Baso % (Auto) 0.1 % (0.2-1.0) L 12/04/19 04:07 Neut # (Auto) 9.4 x10^3/uL (2.2-4.8) H 12/04/19 04:07 Lymph # (Auto) 0.4 X10^3/uL (1.3-2.9) L 12/04/19 04:07 [place] # (Auto) 1.1 x10^3/uL (0.3-0.8) H 12/04/19 04:07 Eos # (Auto) 0.0 x10^3/uL (0.0-0.2) 12/04/19 04:07 Baso # (Auto) 0.0 X10^3/uL (0.0-0.1) 12/04/19 04:07 Absolute Nucleated RBC 0.0 /100WBC 12/04/19 04:07 Total Counted 100 12/01/19 08:19 Neutrophils % (Manual) 88 % (39-76) H 12/01/19 08:19 Lymphocytes % (Manual) 9 % (13-43) L 12/01/19 08:19 Monocytes % (Manual) 3 % (4-9) L 12/01/19 08:19 Plt Morphology Comment Normal (NORMAL) 12/01/19 08:19 RBC Morphology Normal (NORMAL) 12/01/19 08:19 Sample Site Rr 11/29/19 14:10 ABG pH 7.470 (7.35-7.45) H 11/29/19 14:10 ABG pCO2 35.0 mmHg (35.0-45.0) 11/29/19 14:10 ABG pO2 58.0 mmHg (80.0-100.0) L 11/29/19 14:10 ABG HCO3 25.5 mmol/L (22-26) 11/29/19 14:10 ABG O2 Saturation 92.0 % (90-100) 11/29/19 14:10 ABG Base Excess 2.0 mmol/L (-2.0-2.0) 11/29/19 14:10 Domenico Test Pos 11/29/19 14:10 A-a Gradient 48.0 mmHg 11/29/19 14:10 FiO2 21.0 11/29/19 14:10 Blood Gas Comments Pt [facility] 11/29/19 14:10 Sodium 138 mmol/L (136-145) 12/04/19 04:07 Corrected Sodium 140 mmol/L (136-145) 12/04/19 04:07 Potassium 3.6 mmol/L (3.5-5.1) 12/04/19 04:07 Chloride 103 mmol/L (98-107) 12/04/19 04:07 Carbon Dioxide 25.1 mmol/L (21-32) 12/04/19 04:07 BUN 25 mg/dL (7-18) H 12/04/19 04:07 Creatinine 1.04 mg/dL (0.70-1.30) 12/04/19 04:07 Est GFR (MDRD) Af Amer > 60 (>60) 12/04/19 04:07 Est GFR (MDRD) Non-Af > 60 (>60) 12/04/19 04:07 Glucose 164 mg/dL (65-99) H 12/04/19 04:07 POC Glucose (mg/dL) 143 mg/dL (65-99) H 12/04/19 06:00 Lactic Acid 1.7 mmol/L (0.4-2.0) 11/29/19 14:10 Calcium 8.6 mg/dL (8.5-10.1) 12/04/19 04:07 Corrected Calcium 10.0 mg/dL (8.5-10.1) 12/04/19 04:07 Ferritin 468 ng/mL (26-388) H 11/29/19 14:10 Total Bilirubin 0.50 mg/dL (0.2-1.0) 12/04/19 04:07 AST 22 Units/L (15-37) 12/04/19 04:07 ALT 33 Units/L (12-78) 12/04/19 04:07 Alkaline Phosphatase 55 Units/L (46-116) 12/04/19 04:07 Creatine Kinase 60 Units/L (39-308) 11/29/19 14:10 CK-MB (CK-2) < 1.0 ng/mL (0-4.0) 11/29/19 14:10 CK/CKMB % Calc 1.7 % (<4) 11/29/19 14:10 Troponin I < 0.02 ng/mL (0-1.5) 11/29/19 14:10 C-Reactive Protein 5.40 mg/L (0-3.0) H 12/04/19 04:07 Total Protein 6.0 g/dL (6.4-8.2) L 12/04/19 04:07 Albumin 2.3 g/dL (3.4-5.0) L 12/04/19 04:07 Globulin 3.7 g/dL (2.5-4.5) 12/04/19 04:07 Albumin/Globulin Ratio 0.6 Ratio (1.1-2.1) L 12/04/19 04:07 Blood Type O POSITIVE 11/30/19 14:28 Reason For Visit: BILATERAL PNEUMONIA,FAILED TREATMENT,COVID-19 Discharge Date Discharge Date: 12/04/19 Discharge Diagnosis All Active Problems (Updated 12/05/19 @ 11:48 by ANAHY PATEL) Pneumonia (Acute) Hypoxia (Acute) C. difficile colitis (Acute) Dehydration (Acute) Abdominal pain (Acute) Hypotension (Acute) CAD (coronary artery disease) (Acute) Atrial fibrillation (Acute) Accelerated hypertension (Acute) Chest pain (Acute) Aorta aneurysm (Acute) Pleural effusion (Acute) Lung mass (Acute) Pneumonia due to COVID-19 virus (Acute) Plan of Treatment: Continue with present treatment and follow up plan. Pt is to keep follow up appointment as instructed and take medications as ordered. Discharge Medications Discharge Medications: No Known Drug Allergies Allergy (Verified 05/29/19 18:35) CONTINUE taking the following medications amlodipine 10 mg PO HS 11/29/19 [History] metoprolol succinate 100 mg PO HS 11/29/19 [History] [id number] K-lycop [Men's Multivitamin] 1 tab PO HS 11/29/19 [History] Discharge Disposition Assessment: Stable no acute distress noted at time of discharge. Discharge Disposition: Home Discharge Condition: Stable
[2019-12-04] MEDS: COZAAR PO SCH (09:29)
[2019-12-04] MEDS: ELIQUIS PO SCH (09:31)
[2019-12-04] MEDS: TRICOR TAB 160 MG PO SCH (09:31)
[2019-12-04] MEDS: ROBITUSSIN DM PO SCH (09:31)
[2019-12-04] MEDS: VITAMIN D3 125 mcg (5,000 UNITS) PO SCH (09:32)
[2019-12-04] MEDS: ZINC SULFATE PO SCH (09:32)
[2019-12-04] MEDS: VITAMIN A PO SCH (09:32)
[2019-12-04 11:02] VITALS: BP 132/66
== END 2019-12-04 11:25 | disposition home or self-care (01) | DRG 177 ==
LOC: ICU 12:44 → ER 12:44 → ICU 16:42 → OBS 16:48 → ICU 16:51
PROVIDERS: ADMIT Obstetrics & Gynecology Obstetrics; ATTEND Family Medicine
DX: R94.31 Abnormal electrocardiogram [ECG] [EKG]; I10 Essential (primary) hypertension; I48.91 Unspecified atrial fibrillation; R06.02 Shortness of breath; R26.89 Other abnormalities of gait and mobility; J12.89 Other viral pneumonia; U07.1 COVID-19

== ENCOUNTER 2022-03-20 17:23 | Observation (INO) ==
[2022-03-20] MEDS ORDERED: NS 100 ML IV 100 ML ONE (18:00)
[2022-03-20] MEDS ORDERED: NS 1,000 ML IV 1,000 ML IV SCH (18:00)
[2022-03-20] MEDS ORDERED: LR 1,000 ML IV 1,000 ML IV ONE (18:01)
[2022-03-20] MEDS ORDERED: ANCEF VIAL 1 GRAM ONE (18:01)
--- NOTE | 2022-03-20 18:08 | EKG ---
Test Reason : PREOP Blood Pressure : */* mmHG Vent. Rate : 76 BPM Atrial Rate : 76 BPM P-R Int : 286 ms QRS Dur : 90 ms QT Int : 418 ms P-R-T Axes : -1 -37 4 degrees QTc Int : 470 ms Atrial-paced rhythm with prolonged AV conduction Left axis deviation Anterior infarct , age undetermined Abnormal ECG No previous ECGs available Confirmed by Tashi Camara ([id number]) on 03/21/2022 12:33:00 PM Referred By: Confirmed By: Tashi Camara
[2022-03-20 18:26] LABS: BASOPHILS # (AUTO) 0.1 X10^3/uL (0.0-0.1); BASOPHILS % (AUTO) 1.1 % (0.2-1.0); EOSINOPHILS # (AUTO) 0.5 x10^3/uL (0.0-0.2); EOSINOPHILS % (AUTO) 5.9 % (0.9-2.9); HEMATOCRIT 44.8 % (42.0-54.0); HEMOGLOBIN 15.4 g/dL (13.5-18.0); LYMPHOCYTES # (AUTO) 2.5 X10^3/uL (1.3-2.9); LYMPHOCYTES % (AUTO) 28.6 % (21.0-51.0); MEAN CORPUSCULAR HEMOGLOBIN 31.1 pg (27.0-34.0); MEAN CORPUSCULAR HGB CONC 34.4 g/dL (33.0-35.0); MEAN CORPUSCULAR VOLUME 90.5 fL (80.0-100.0); MEAN PLATELET VOLUME 8.4 fL (7.4-11.0); MONOCYTES # (AUTO) 1.1 x10^3/uL (0.3-0.8); MONOCYTES % (AUTO) 12.9 % (0.0-13.0); NEUTROPHILS # (AUTO) 4.5 x10^3/uL (2.2-4.8); NEUTROPHILS % (AUTO) 51.5 % (42.0-75.0); RED BLOOD COUNT 4.95 X10^6/uL (4.7-6.0); RED CELL DISTRIBUTION WIDTH 13.7 % (11.6-16.5); WHITE BLOOD COUNT 8.8 X10^3/uL (3.6-10.0)
--- NOTE | 2022-03-20 18:26 | RAD ---
HISTORYPre op bowel resectoinSTUDYCHEST, 1 VIEWCOMPARISONOctober 2021TECHNIQUEChest radiographic imaging, AP portable projection, 1 imageFINDINGSMild cardiomegaly.Pacemaker in place.No focal airspace disease.No pleural effusion.No pneumothorax.No acute osseous abnormality.IMPRESSIONNo imaging findings of acute cardiopulmonary disease.Electronically signed by: Roger Parra (Mar 20, 2022 18:24:05)
[2022-03-20] MEDS ORDERED: SUPRANE ONE ×2 (18:31→18:55)
[2022-03-20] MEDS ORDERED: ZEMURON 100 MG VIAL ONE (18:34)
[2022-03-20] MEDS ORDERED: DIPRIVAN VIAL 20 ML ONE (18:34)
[2022-03-20] MEDS ORDERED: OFIRMEV IV 1000 MG VIAL 1,000 MG/100 ML VIAL IV ONE (18:34)
[2022-03-20] MEDS ORDERED: BRIDION ONE (18:34)
[2022-03-20] MEDS ORDERED: ZOFRAN INJ 4 MG VIAL ONE (18:34)
[2022-03-20] MEDS ORDERED: PEPCID 20 MG VIAL ONE (18:34)
[2022-03-20 18:35] LABS: ALANINE AMINOTRANSFERASE 23 Units/L (12-78); ALBUMIN 4.2 g/dL (3.4-5.0); ALKALINE PHOSPHATASE 76 Units/L (46-116); ASPARTATE AMINO TRANSFERASE 20 Units/L (15-37); BLOOD UREA NITROGEN 14 mg/dL (7-18); CARBON DIOXIDE 25.5 mmol/L (21-32); CHLORIDE 104 mmol/L (98-107); CREATININE 1.23 mg/dL (0.70-1.30); SODIUM 142 mmol/L (136-145); TOTAL PROTEIN 7.8 g/dL (6.4-8.2); eGFR NON BLACK RACES > 60 (>60)
[2022-03-20] MEDS ORDERED: FENTANYL VIAL INJ 100 mcg ONE ×2 (18:35→19:27)
[2022-03-20] MEDS ORDERED: VERSED ONE (18:35)
[2022-03-20 18:37] VITALS: BMI 32.2
[2022-03-20] MEDS ORDERED: POLYMYXIN B SULFATE ONE (19:26)
[2022-03-20] MEDS ORDERED: DILAUDID INJ ONE (20:24)
[2022-03-20] MEDS ORDERED: ZOFRAN INJ 4 MG VIAL IVP PRN (20:31)
[2022-03-20] MEDS ORDERED: BARHEMSYS INJ IVP PRN (20:31)
[2022-03-20] MEDS ORDERED: DILAUDID INJ IVP PRN ×2 (20:31→20:37)
[2022-03-20] MEDS ORDERED: BENADRYL INJ 50 MG VIAL IVP PRN (20:31)
[2022-03-20] MEDS: D5 1/2 NS 1,000 ML 1,000 ML IV SCH (21:19)
[2022-03-20] MEDS: ANCEF VIAL 1 GRAM IVP SCH (23:47)
[2022-03-21] MEDS: DILAUDID INJ IVP PRN ×4 (00:21→15:53)
[2022-03-21] MEDS: ZOFRAN INJ 4 MG VIAL IVP PRN ×4 (00:22→15:52)
[2022-03-21 05:22] LABS: BASOPHILS % (AUTO) 0.4 % (0.2-1.0); EOSINOPHILS # (AUTO) 0.1 x10^3/uL (0.0-0.2); EOSINOPHILS % (AUTO) 1.1 % (0.9-2.9); HEMATOCRIT 40.9 % (42.0-54.0); HEMOGLOBIN 14.1 g/dL (13.5-18.0); LYMPHOCYTES # (AUTO) 1.4 X10^3/uL (1.3-2.9); MEAN CORPUSCULAR HEMOGLOBIN 31.3 pg (27.0-34.0); MEAN CORPUSCULAR HGB CONC 34.4 g/dL (33.0-35.0); MEAN PLATELET VOLUME 8.5 fL (7.4-11.0); MONOCYTES # (AUTO) 1.3 x10^3/uL (0.3-0.8); NEUTROPHILS # (AUTO) 7.2 x10^3/uL (2.2-4.8); NEUTROPHILS % (AUTO) 71.5 % (42.0-75.0); RED BLOOD COUNT 4.49 X10^6/uL (4.7-6.0); RED CELL DISTRIBUTION WIDTH 14.2 % (11.6-16.5); WHITE BLOOD COUNT 10.1 X10^3/uL (3.6-10.0)
[2022-03-21 05:40] LABS: ALANINE AMINOTRANSFERASE 217 Units/L (12-78); ALBUMIN 3.6 g/dL (3.4-5.0); ALKALINE PHOSPHATASE 158 Units/L (46-116); ASPARTATE AMINO TRANSFERASE 409 Units/L (15-37); BLOOD UREA NITROGEN 16 mg/dL (7-18); CALCIUM 8.4 mg/dL (8.5-10.1); CARBON DIOXIDE 28.2 mmol/L (21-32); CHLORIDE 103 mmol/L (98-107); COR NA(FOR HYPERGLY) 141 mmol/L (136-145); CREATININE 1.34 mg/dL (0.70-1.30); SODIUM 140 mmol/L (136-145); TOTAL PROTEIN 7.1 g/dL (6.4-8.2); eGFR NON BLACK RACES 54 (>60)
[2022-03-21] MEDS: D5 1/2 NS 1,000 ML 1,000 ML IV SCH ×3 (06:07→20:31)
[2022-03-21] MEDS: ANCEF VIAL 1 GRAM IVP SCH ×3 (06:07→21:11)
[2022-03-21] MEDS ORDERED: ELIQUIS PO SCH (10:15)
--- NOTE | 2022-03-21 17:27 | DR.PROGNOT ---
Hospital Progress Notes - Progress Note for Day of: Progress Note Date: 03/21/22 - Chief Complaint Chief Complaint: c/o nausea , no vomiting . required IV pain medications . able to void with some difficulty . afebrile .. - Past Medical Family Social History Past Med/Fam/Surg Hx: No changes since H&P Allergies: Allergies No Known Drug Allergies Allergy (Verified 05/29/19 18:35) - Review Of Systems ROS: No change since H&P - Vital Signs Vital Signs: Temperature 98.0 F Pulse Rate [Brachial] 72 Pulse Rate 74 Respiratory Rate 20 Blood Pressure [Left Arm] 128/61 Blood Pressure [Standing] 99/58 Blood Pressure [Sitting] 100/61 Blood Pressure [Lying] 105/60 Blood Pressure 154/87 O2 Sat by Pulse Oximetry 95 - Physical Exam Oriented: Normal Eyes: Normal Ear: Normal Nose: Normal Respiratory: Rhonchi Cardiovascular: Other (has pacemaker .) GI:Palpation: Other (soft abdomen with diffuse tenderness . BS+ but hypoactive .. ) GI: Tenderness: Diffuse Mood Description: Calm Speech Pattern: Clear, Appropriate - Laboratory and Diagnostics Result Diagrams: 03/21/22 04:20 03/21/22 04:20 Labs: 03/20/22 19:35 Abdomen Wound Culture - Preliminary Laboratory WBC 10.1 X10^3/uL (3.6-10.0) H 03/21/22 04:20 RBC 4.49 X10^6/uL (4.7-6.0) L 03/21/22 04:20 Hgb 14.1 g/dL (13.5-18.0) 03/21/22 04:20 Hct 40.9 % (42.0-54.0) L 03/21/22 04:20 MCV 91.0 fL (80.0-100.0) 03/21/22 04:20 MCH 31.3 pg (27.0-34.0) 03/21/22 04:20 MCHC 34.4 g/dL (33.0-35.0) 03/21/22 04:20 RDW 14.2 % (11.6-16.5) 03/21/22 04:20 Plt Count 158 X10^3/uL (150.0-450.0) 03/21/22 04:20 MPV 8.5 fL (7.4-11.0) 03/21/22 04:20 Neut % (Auto) 71.5 % (42.0-75.0) 03/21/22 04:20 Lymph % (Auto) 14.0 % (21.0-51.0) L 03/21/22 04:20 [place] % (Auto) 13.0 % (0.0-13.0) 03/21/22 04:20 Eos % (Auto) 1.1 % (0.9-2.9) 03/21/22 04:20 Baso % (Auto) 0.4 % (0.2-1.0) 03/21/22 04:20 Neut # (Auto) 7.2 x10^3/uL (2.2-4.8) H 03/21/22 04:20 Lymph # (Auto) 1.4 X10^3/uL (1.3-2.9) 03/21/22 04:20 [place] # (Auto) 1.3 x10^3/uL (0.3-0.8) H 03/21/22 04:20 Eos # (Auto) 0.1 x10^3/uL (0.0-0.2) 03/21/22 04:20 Baso # (Auto) 0.0 X10^3/uL (0.0-0.1) 03/21/22 04:20 Absolute Nucleated RBC 0.0 /100WBC 03/21/22 04:20 Sodium 140 mmol/L (136-145) 03/21/22 04:20 Corrected Sodium 141 mmol/L (136-145) 03/21/22 04:20 Potassium 4.3 mmol/L (3.5-5.1) 03/21/22 04:20 Chloride 103 mmol/L (98-107) 03/21/22 04:20 Carbon Dioxide 28.2 mmol/L (21-32) 03/21/22 04:20 BUN 16 mg/dL (7-18) 03/21/22 04:20 Creatinine 1.34 mg/dL (0.70-1.30) H 03/21/22 04:20 Est GFR (MDRD) Af Amer > 60 (>60) 03/21/22 04:20 Est GFR (MDRD) Non-Af 54 (>60) L 03/21/22 04:20 Glucose 139 mg/dL (65-99) H 03/21/22 04:20 Calcium 8.4 mg/dL (8.5-10.1) L 03/21/22 04:20 Corrected Calcium TNP 03/21/22 04:20 Total Bilirubin 1.30 mg/dL (0.2-1.0) H 03/21/22 04:20 AST 409 Units/L (15-37) H 03/21/22 04:20 ALT 217 Units/L (12-78) H 03/21/22 04:20 Alkaline Phosphatase 158 Units/L (46-116) H 03/21/22 04:20 Total Protein 7.1 g/dL (6.4-8.2) 03/21/22 04:20 Albumin 3.6 g/dL (3.4-5.0) 03/21/22 04:20 Globulin 3.5 g/dL (2.5-4.5) 03/21/22 04:20 Albumin/Globulin Ratio 1.0 Ratio (1.1-2.1) L 03/21/22 04:20 Tissue Pathology To follow 03/20/22 19:35 - Assessment and Plan 1: incarcerated multiple incisional hernias with omentum and colon in the hernia sac . s/p partial omentectomy , repair of incarcerated incisional hernias.. CAD, HTN . same PO care , PT . incentive spirometer . DVT prophylaxis . OOB with BINDER
[2022-03-21] MEDS: PERCOCET TAB 5/325 MG PO PRN (21:09)
[2022-03-22] MEDS: PERCOCET TAB 5/325 MG PO PRN (03:45)
[2022-03-22] MEDS: ANCEF VIAL 1 GRAM IVP SCH (05:28)
[2022-03-22 05:31] LABS: BASOPHILS % (AUTO) 0.5 % (0.2-1.0); EOSINOPHILS # (AUTO) 0.2 x10^3/uL (0.0-0.2); EOSINOPHILS % (AUTO) 2.1 % (0.9-2.9); HEMOGLOBIN 13.2 g/dL (13.5-18.0); LYMPHOCYTES # (AUTO) 1.2 X10^3/uL (1.3-2.9); LYMPHOCYTES % (AUTO) 14.1 % (21.0-51.0); MEAN CORPUSCULAR HGB CONC 33.9 g/dL (33.0-35.0); MEAN CORPUSCULAR VOLUME 91.4 fL (80.0-100.0); MEAN PLATELET VOLUME 8.8 fL (7.4-11.0); MONOCYTES # (AUTO) 1.2 x10^3/uL (0.3-0.8); MONOCYTES % (AUTO) 14.3 % (0.0-13.0); NEUTROPHILS # (AUTO) 5.9 x10^3/uL (2.2-4.8); RED BLOOD COUNT 4.27 X10^6/uL (4.7-6.0); RED CELL DISTRIBUTION WIDTH 13.8 % (11.6-16.5); WHITE BLOOD COUNT 8.5 X10^3/uL (3.6-10.0)
[2022-03-22 05:37] LABS: ALANINE AMINOTRANSFERASE 95 Units/L (12-78); ALBUMIN 3.2 g/dL (3.4-5.0); ALKALINE PHOSPHATASE 114 Units/L (46-116); ASPARTATE AMINO TRANSFERASE 76 Units/L (15-37); BLOOD UREA NITROGEN 9 mg/dL (7-18); CALCIUM 8.3 mg/dL (8.5-10.1); CHLORIDE 99 mmol/L (98-107); COR CA(FOR HYPOALB) 8.9 mg/dL (8.5-10.1); COR NA(FOR HYPERGLY) 139 mmol/L (136-145); SODIUM 137 mmol/L (136-145); TOTAL PROTEIN 6.6 g/dL (6.4-8.2); eGFR NON BLACK RACES > 60 (>60)
[2022-03-22] MEDS: D5 1/2 NS 1,000 ML 1,000 ML IV SCH (05:45)
--- NOTE | 2022-03-22 05:53 | RAD ---
HISTORYHemoptysisSTUDYCHEST, 1 [id number]/03/2023FINDINGSThe cardiomediastinal silhouette is stable. Left-sided pacer and pacer wires unchanged. Hypoventilatory exam with increased interstitial markings and faint right-sided airspace opacities. No pneumothorax or effusion. The bony thorax appears intact.IMPRESSIONRight-sided airspace opacities which may reflect atelectasis or pneumonia.Electronically signed by: ALEXANDER LEE (Mar 22, 2022 05:51:56)
[2022-03-22] MEDS ORDERED: POTASSIUM CHL 60 MEQ/NS 0.45% 500 ML IV PRN (05:55)
[2022-03-22] MEDS ORDERED: K-RIDER 10 MEQ/NS 100 ML 10 MEQ/100 ML BAG IV PRN (05:55)
[2022-03-22] MEDS ORDERED: POTASSIUM CHL 40 MEQ/NS 0.45% 500 ML IV PRN (05:55)
[2022-03-22] MEDS ORDERED: K-DUR TAB 20 MEQ PO PRN (05:55)
[2022-03-22] MEDS ORDERED: POTASSIUM CHLORIDE LIQ 20 MEQ UDC PO PRN (05:55)
[2022-03-22] MEDS ORDERED: KLOR-CON PO PRN (05:55)
[2022-03-22] MEDS ORDERED: MICRO K EXTEN CAP 10 MEQ PO PRN (05:55)
[2022-03-22] MEDS: MAGNESIUM SULFATE 1 GRAM/100 mL PREMIX 1 G/100 ML BAG IV PRN ×2 (06:28→08:54)
[2022-03-22 08:38] VITALS: BP 124/65
--- NOTE | 2022-03-22 18:41 | DR.CONSULT ---
CONSULT Consultation for Day of: Date: 03/22/22 Chief Complaint Chief Complaint: Medical management of chronic medical problems Allergies Allergies Allergy/AdvReac Type Severity Reaction Status Date / Time No Known Drug Allergies Allergy Verified 05/29/19 18:35 History of Present Illness History of Present Illness: This is a pleasant 81-year-old white male who just underwent a herniorrhaphy for incarcerated hernia. Today he is sitting up on the edge of the bed and reports that he is doing better but has some mild pain at the surgery site. He does report to me that he has a history of coronary artery disease status post 2 coronary artery stents in the past. He does have atrial fibrillation in which he takes Eliquis for and metoprolol. He also reports that he has a history of hypertension that is controlled and he also takes medication for hypercholesteremia. Past Medical History Past Medical History: Anxiety, Depression, Dyslipidemia, GERD and Hypertension Past Surgical History Surgical History: Abdominal Surgery, Appendectomy, Cholecystectomy, Ortho Surgery and Other Family History Family Medical History: [place], Coronary Artery Disease, Sudden Cardiac and Hypertension Social History Does patient currently use any type of tobacco product: Yes Have you used tobacco products in the last 12 months: Yes Type of Tobacco Use: Smokeless Does any household member use tobacco: No Alcohol Use: Occasionally Drug Use: None Medications Home Medications: No Known Drug Allergies Allergy (Verified 05/29/19 18:35) New Prescriptions hydrocodone 10 mg-acetaminophen 325 mg tablet 1 tab PO Q6H PRN #20 tabs 03/22/22 [Rx] Review of Systems Constitutional: Weakness Eyes: No Symptoms Reported ENT: No Symptoms Reported Respiratory: No Symptoms Reported Cardiovascular: No Symptoms Reported Gastrointestinal: No Symptoms Reported Genitourinary: No Symptoms Reported Musculoskeletal: Other (Lower abdominal pain ) Skin: No Symptoms Reported Neurological: No Symptoms Reported Physical Exam Vital Signs: Temperature 97.5 F Pulse Rate [Brachial] 88 Pulse Rate 74 Respiratory Rate 25 Blood Pressure [Left Arm] 124/65 Blood Pressure [Standing] 99/58 Blood Pressure [Sitting] 100/61 Blood Pressure [Lying] 105/60 Blood Pressure 154/87 O2 Sat by Pulse Oximetry 93 Oriented: Normal, Time, Person and Place Eyes: Normal Respiratory: Clear Throughout Cardiovascular: Normal Auscultation: Bowel Sounds: Normal Palpation: Normal Tenderness: Normal Skin: Normal Musculoskeletal: Normal Psychiatric: Normal Mood Description: Calm Affect: Normal Speech Pattern: Clear and Appropriate Plan (1) Incarcerated hernia: Status: Acute Plan: Status post herniarrhaphy patient stable. (2) Atrial fibrillation: Status: Acute Plan: We will resume patient's metoprolol and he may resume his Eliquis at discharge today. (3) CAD (coronary artery disease): Status: Acute (4) Hypertension: Status: Acute Plan: Resume home medicines at discharge.
== END 2022-03-22 12:15 | disposition home health service (06) ==
LOC: ICU
PROVIDERS: ADMIT Surgery; ATTEND Surgery
DX: I25.10 Atherosclerotic heart disease of native coronary artery without angina pectoris; I10 Essential (primary) hypertension; R04.2 Hemoptysis; I48.91 Unspecified atrial fibrillation; R94.31 Abnormal electrocardiogram [ECG] [EKG]; K43.0 Incisional hernia with obstruction, without gangrene; Z79.01 Long term (current) use of anticoagulants; E78.2 Mixed hyperlipidemia; K66.0 Peritoneal adhesions (postprocedural) (postinfection)

== ENCOUNTER 2022-03-25 08:42 | Observation (INO) ==
--- NOTE | 2022-03-25 09:07 | DR.ABDMALE ---
HPI Time seen Time Seen by Provider: 03/25/22 09:07 HPI comment HPI Comment: An 81 y/o male presenting with having no BM since post-op on 03/20/22, abdominal soreness. He states that he is not passing flatulence either. He was d/c from here on 03/22/22. He has nausea but no vomiting. Reviewed Nurses Notes Review: Yes Timing Came on: Gradually Location Location: Periumbilical Quality Quality: Other (soreness) Context History of: Abdominal surgery Modifying factors Worsening Factors: Nothing Improving Factors: Nothing Associated signs and symptoms Associated Signs and Symptoms: Nausea and Constipation PMH PMH Past Medical History: Anxiety, Depression, Dyslipidemia, GERD and Hypertension Past Surgical History: Yes Surgical History: Abdominal Surgery, Appendectomy, Cholecystectomy, Ortho Surgery and Other Family History Family Medical History: [place], Coronary Artery Disease, Sudden Cardiac and Hypertension Social History Do you use any recreational Drugs:: No ROS Review of Systems Constitutional: No Symptoms Reported Eyes: No Symptoms Reported ENTM: No Symptoms Reported Respiratoy: No Symptoms Reported Cardiovascular: No Symptoms Reported Gastrointestinal/Abdominal: Abdominal Pain (soreness) and Nausea Genitourinary: No Symptoms Reported Neurological: No Symptoms Reported Musculoskeletal: No Symptoms Reported Integumentary: No Symptoms Reported Hematologic/Lymphatic: No Symptoms Reported Endocrine: No Symptoms Reported Psychiatric: No Symptoms Reported All Other Systems: Reviewed and Negative PE Vital Signs Vital Signs: Temp Pulse Resp BP BP Pulse Ox O2 Del Method 12/04/19 09:05 03/25/22 12:00 70 93 L 03/25/22 12:00 131/91 03/25/22 11:45 68 92 L 03/25/22 11:30 78 91 L 03/25/22 11:30 111/72 03/25/22 11:15 70 95 03/25/22 11:00 69 93 L 03/25/22 11:00 135/83 03/25/22 10:45 118 H 86 L 03/25/22 10:30 71 92 L 03/25/22 10:30 146/86 03/25/22 10:15 69 90 L 03/25/22 10:07 70 93 L 03/25/22 10:07 134/88 03/25/22 09:45 70 91 L 03/25/22 09:31 125/79 03/25/22 09:31 70 91 L 03/25/22 09:30 70 88 L 03/25/22 09:15 69 93 L 03/25/22 09:04 70 93 L 03/25/22 08:44 97.6 F 75 18 158/80 94 L Room Air 03/22/22 08:00 124/65 FiO2 12/04/19 09:05 28 03/25/22 12:00 03/25/22 12:00 03/25/22 11:45 03/25/22 11:30 03/25/22 11:30 03/25/22 11:15 03/25/22 11:00 03/25/22 11:00 03/25/22 10:45 03/25/22 10:30 03/25/22 10:30 03/25/22 10:15 03/25/22 10:07 03/25/22 10:07 03/25/22 09:45 03/25/22 09:31 03/25/22 09:31 03/25/22 09:30 03/25/22 09:15 03/25/22 09:04 03/25/22 08:44 03/22/22 08:00 General Limitations: No Limitations General Appearance: Alert and In No Apparent Distress Head Head Exam: Normal Inspection, Atraumatic and Normocephalic Eyes Eye exam: Normal Appearance and EOMI ENT ENT Exam: Normal Exam, Normal Oropharynx, Normal External Ear Exam and Mucous Membranes Moist Neck Neck Exam: Normal Inspection, Full ROM and Trachea Midline Chest Chest Inspection: Normal Inspection and Symmetric Chest Wall Rise Respiratory Respiratory Exam: Normal Lung Sounds Bilat Cardiovascular Cardiovascular Exam: Regular Rate, Normal Rhythm, Normal Heart Sounds, +S1 and +S2 Abdominal Exam Abdominal Exam: Normal Bowel Sounds, Soft and Incision (midline, vertical with overlayed dressing. ); negative Normal Inspection, Distention, Tenderness, Guarding, Rebound, Rigidity, Dimnished Bowel Sounds, Hyperactive Bowel Sounds, Hypoactive Bowel Sounds, Organomegaly, Trauma, Ascites, Mass, Bruit, Pulsatile Mass or Hernia Rectal Rectal Exam: Deferred Back Back Exam: Normal Inspection and Full ROM Extremeties Extremities Exam: Normal Inspection and Full ROM Exam: Male: Deferred Neurologic Neurological Exam: Alert and Oriented X3 Psychiatric Psychiatric Exam: Normal Affect and Normal Mood Skin Skin Exam: Dry, Intact and Normal Color COURSE Treatment Treatment: I discussed findings with the pt. and his spouse. I spoke also, with on-call surgeon (Dr. Bojorquez), who recommended admission into OBS. status. He will come see pt. on med.-surg floor. Reevaluation 1st: Unchanged Consultation Consultation Comments: Admit to OBS. Clear liquid diet. Call Dr. Bojoqruez upon arrival on floor to come see pt. Education/Counseling Education/Counseling: Patient, Family, Education and Counseling Educated On: Treatment, Diagnosis, Prognosis and Needs for Follow Up ROR Labs Reviewed Result Diagrams: 03/25/22 08:36 03/25/22 08:36 Laboratory: WBC 8.7 X10^3/uL (3.6-10.0) 03/25/22 08:36 RBC 4.69 X10^6/uL (4.7-6.0) L 03/25/22 08:36 Hgb 14.6 g/dL (13.5-18.0) 03/25/22 08:36 Hct 42.5 % (42.0-54.0) 03/25/22 08:36 MCV 90.8 fL (80.0-100.0) 03/25/22 08:36 MCH 31.1 pg (27.0-34.0) 03/25/22 08:36 MCHC 34.3 g/dL (33.0-35.0) 03/25/22 08:36 RDW 14.0 % (11.6-16.5) 03/25/22 08:36 Plt Count 236 X10^3/uL (150.0-450.0) 03/25/22 08:36 MPV 8.3 fL (7.4-11.0) 03/25/22 08:36 Neut % (Auto) 63.6 % (42.0-75.0) 03/25/22 08:36 Lymph % (Auto) 16.0 % (21.0-51.0) L 03/25/22 08:36 [place] % (Auto) 13.5 % (0.0-13.0) H 03/25/22 08:36 Eos % (Auto) 5.9 % (0.9-2.9) H 03/25/22 08:36 Baso % (Auto) 1.0 % (0.2-1.0) 03/25/22 08:36 Neut # (Auto) 5.5 x10^3/uL (2.2-4.8) H 03/25/22 08:36 Lymph # (Auto) 1.4 X10^3/uL (1.3-2.9) 03/25/22 08:36 [place] # (Auto) 1.2 x10^3/uL (0.3-0.8) H 03/25/22 08:36 Eos # (Auto) 0.5 x10^3/uL (0.0-0.2) H 03/25/22 08:36 Baso # (Auto) 0.1 X10^3/uL (0.0-0.1) 03/25/22 08:36 Absolute Nucleated RBC 0.0 /100WBC 03/25/22 08:36 Sodium 135 mmol/L (136-145) L 03/25/22 08:36 Corrected Sodium TNP 03/25/22 08:36 Potassium 3.9 mmol/L (3.5-5.1) 03/25/22 08:36 Chloride 98 mmol/L (98-107) 03/25/22 08:36 Carbon Dioxide 31.9 mmol/L (21-32) 03/25/22 08:36 BUN 14 mg/dL (7-18) 03/25/22 08:36 Creatinine 1.31 mg/dL (0.70-1.30) H 03/25/22 08:36 Est GFR (MDRD) Af Amer > 60 (>60) 03/25/22 08:36 Est GFR (MDRD) Non-Af 56 (>60) L 03/25/22 08:36 Glucose 103 mg/dL (65-99) H 03/25/22 08:36 Calcium 9.0 mg/dL (8.5-10.1) 03/25/22 08:36 Corrected Calcium TNP 03/25/22 08:36 Total Bilirubin 0.60 mg/dL (0.2-1.0) 03/25/22 08:36 AST 23 Units/L (15-37) 03/25/22 08:36 ALT 39 Units/L (12-78) 03/25/22 08:36 Alkaline Phosphatase 93 Units/L (46-116) 03/25/22 08:36 Total Protein 7.6 g/dL (6.4-8.2) 03/25/22 08:36 Albumin 3.4 g/dL (3.4-5.0) 03/25/22 08:36 Globulin 4.2 g/dL (2.5-4.5) 03/25/22 08:36 Albumin/Globulin Ratio 0.8 Ratio (1.1-2.1) L 03/25/22 08:36 Opioid Opioid Risk Tool Age (Virgilio box if 16-45): No History of Preadolescent Sexual Abuse: No Total: 0 Total Score Risk Category: Low Risk Copyright: Bandar LONG predicting aberrant behaviors Discharge Plan Diagnosis Discharge Problem: SBO (small bowel obstruction), Hypertension, CAD (coronary artery disease), Atrial fibrillation Discharge Plan Patient Disposition: ADMITTED INPATIENT Condition: Stable Orders to Discharge Patient Discharge Orders: Transfer (Routine); Ordered 03/25/22 Ordered By: GRIS ROQUE
[2022-03-25 09:08] VITALS: BMI 33.2
[2022-03-25 09:31] LABS: BASOPHILS # (AUTO) 0.1 X10^3/uL (0.0-0.1); EOSINOPHILS # (AUTO) 0.5 x10^3/uL (0.0-0.2); EOSINOPHILS % (AUTO) 5.9 % (0.9-2.9); HEMATOCRIT 42.5 % (42.0-54.0); HEMOGLOBIN 14.6 g/dL (13.5-18.0); LYMPHOCYTES # (AUTO) 1.4 X10^3/uL (1.3-2.9); MEAN CORPUSCULAR HEMOGLOBIN 31.1 pg (27.0-34.0); MEAN CORPUSCULAR HGB CONC 34.3 g/dL (33.0-35.0); MEAN CORPUSCULAR VOLUME 90.8 fL (80.0-100.0); MEAN PLATELET VOLUME 8.3 fL (7.4-11.0); MONOCYTES # (AUTO) 1.2 x10^3/uL (0.3-0.8); MONOCYTES % (AUTO) 13.5 % (0.0-13.0); NEUTROPHILS # (AUTO) 5.5 x10^3/uL (2.2-4.8); NEUTROPHILS % (AUTO) 63.6 % (42.0-75.0); RED BLOOD COUNT 4.69 X10^6/uL (4.7-6.0); WHITE BLOOD COUNT 8.7 X10^3/uL (3.6-10.0)
[2022-03-25 09:40] LABS: ALANINE AMINOTRANSFERASE 39 Units/L (12-78); ALBUMIN 3.4 g/dL (3.4-5.0); ALKALINE PHOSPHATASE 93 Units/L (46-116); ASPARTATE AMINO TRANSFERASE 23 Units/L (15-37); BLOOD UREA NITROGEN 14 mg/dL (7-18); CARBON DIOXIDE 31.9 mmol/L (21-32); CHLORIDE 98 mmol/L (98-107); CREATININE 1.31 mg/dL (0.70-1.30); SODIUM 135 mmol/L (136-145); TOTAL PROTEIN 7.6 g/dL (6.4-8.2); eGFR NON BLACK RACES 56 (>60)
--- NOTE | 2022-03-25 10:50 | CT ---
ABDOMEN/PELVIS W/O CONHISTORY: Postsurgical pain and bloatingComparison:04/17/2020Technique:Multiple non contrast axial images of the abdomen and pelvis were obtained from the lung bases to the pubic symphysis.. Dose reduction techniques including Automated Exposure Control (AEC) and adjustment of mA and kV were utlized.Findings:The sensitivity for focal lesion detection within the solid abdominal viscera is diminished without the use of IV contrast.The heart is normal in size. There is no pericardial effusion. Scarring of the lung bases. Severe coronary calcification.Liver and spleen are normal in size, contour. No focal lesions. No ductal dilitation. Gallbladder absent. The pancreas is unremarkable. Adrenal glands are normal. 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 Transition appears to generally be subjacent to recent abdominal wall surgery. The small bowel does not appear to be specifically involved in the peritoneal defect however it does approximated and may be tethered. Decompression/transition point appears to be approximately series 3, image 54. distal small bowel is decompressed however there is a significant amount of stool and fluid within the colon. Just under patient's surgical sutures is a fluid collection measuring 8.4 x 3.7 x 2.0 cm. Some subcutaneous air is also present. No abnormal appearing mesenteric or retroperitoneal lymph nodes. . No free fluid or fluid collections.The bladder is normal in appearance. Prostate measures 5.6 cm no free fluid or abnormal pelvic lymph nodes.No aggressive osseous lesions.IMPRESSION:1.Possible small bowel obstruction with transition point just subjacent to patient's abdominal surgery. No evidence of abdominal ischemia. The fluid and stool within the colon suggests either this is not partial or perhaps early obstruction. Correlate with bowel habits.2. Fluid collection subjacent to patient's surgical sutures may represent seroma depending on date of surgery. Abscess not excluded on this examination.3. Other chronic findings as above.Electronically signed by: DON BELL (Mar 25, 2022 10:48:59)
[2022-03-25] MEDS ORDERED: ZOFRAN INJ 4 MG VIAL IVP PRN (12:36)
[2022-03-25] MEDS ORDERED: NS 1,000 ML IV 1,000 ML ONE (13:10)
[2022-03-25] MEDS ORDERED: ELIQUIS ONE (13:43)
[2022-03-25] MEDS ORDERED: ZOFRAN INJ 4 MG VIAL ONE (13:43)
[2022-03-25] MEDS: ELIQUIS PO SCH ×2 (13:48→21:00)
[2022-03-25] MEDS: NS 1,000 ML IV 1,000 ML IV SCH (13:49)
[2022-03-25] MEDS ORDERED: LEXAPRO ONE (20:05)
[2022-03-25] MEDS ORDERED: TOPROL XL PO ONE (20:05)
[2022-03-25] MEDS: PROTONIX TAB 40 MG PO SCH (21:00)
[2022-03-25] MEDS: TOPROL XL PO SCH (21:00)
[2022-03-25] MEDS: LEXAPRO PO SCH (21:01)
[2022-03-26] MEDS: NS 1,000 ML IV 1,000 ML IV SCH ×2 (01:54→15:03)
[2022-03-26 06:04] LABS: BASOPHILS # (AUTO) 0.1 X10^3/uL (0.0-0.1); BASOPHILS % (AUTO) 0.9 % (0.2-1.0); EOSINOPHILS # (AUTO) 0.4 x10^3/uL (0.0-0.2); EOSINOPHILS % (AUTO) 5.4 % (0.9-2.9); HEMATOCRIT 39.6 % (42.0-54.0); HEMOGLOBIN 13.3 g/dL (13.5-18.0); LYMPHOCYTES # (AUTO) 1.8 X10^3/uL (1.3-2.9); LYMPHOCYTES % (AUTO) 23.9 % (21.0-51.0); MEAN CORPUSCULAR HEMOGLOBIN 30.9 pg (27.0-34.0); MEAN CORPUSCULAR HGB CONC 33.7 g/dL (33.0-35.0); MEAN CORPUSCULAR VOLUME 91.7 fL (80.0-100.0); MEAN PLATELET VOLUME 8.1 fL (7.4-11.0); MONOCYTES # (AUTO) 1.2 x10^3/uL (0.3-0.8); MONOCYTES % (AUTO) 16.1 % (0.0-13.0); NEUTROPHILS % (AUTO) 53.7 % (42.0-75.0); RED BLOOD COUNT 4.32 X10^6/uL (4.7-6.0); RED CELL DISTRIBUTION WIDTH 13.9 % (11.6-16.5); WHITE BLOOD COUNT 7.4 X10^3/uL (3.6-10.0)
[2022-03-26 06:29] LABS: ALANINE AMINOTRANSFERASE 36 Units/L (12-78); ALBUMIN 3.2 g/dL (3.4-5.0); ALKALINE PHOSPHATASE 84 Units/L (46-116); ASPARTATE AMINO TRANSFERASE 28 Units/L (15-37); BLOOD UREA NITROGEN 12 mg/dL (7-18); CALCIUM 8.9 mg/dL (8.5-10.1); CARBON DIOXIDE 28.1 mmol/L (21-32); CHLORIDE 103 mmol/L (98-107); COR CA(FOR HYPOALB) 9.5 mg/dL (8.5-10.1); SODIUM 140 mmol/L (136-145); TOTAL PROTEIN 6.9 g/dL (6.4-8.2); eGFR NON BLACK RACES > 60 (>60)
--- NOTE | 2022-03-26 07:32 | DR.PROGNOT ---
Hospital Progress Notes - Progress Note for Day of: Progress Note Date: 03/26/22 - Chief Complaint Chief Complaint: feeling better after the enemas . still having diffuse abdominal pain . mild nausea , no vomiting , - Past Medical Family Social History Past Med/Fam/Surg Hx: No changes since H&P Allergies: Allergies No Known Drug Allergies Allergy (Verified 05/29/19 18:35) - Review Of Systems ROS: No change since H&P - Vital Signs Vital Signs: Temperature 98.7 F Pulse Rate [Left Radial] 64 Pulse Rate 71 Respiratory Rate 18 Blood Pressure [Left Arm] 142/74 Blood Pressure 150/84 O2 Sat by Pulse Oximetry 97 - Physical Exam Oriented: Normal Eyes: Normal Ear: Normal Nose: Normal Throat: Normal Respiratory: Normal Cardiovascular: Normal : Frequency GI:Auscultation: Decreased GI: Tenderness: Diffuse (soft abdomen . mild diffuse tenderness , BS + but hypoactive .. clean incision ) Speech Pattern: Clear, Appropriate - Laboratory and Diagnostics Result Diagrams: 03/26/22 05:21 03/26/22 05:21 Labs: Laboratory WBC 7.4 X10^3/uL (3.6-10.0) 03/26/22 05:21 RBC 4.32 X10^6/uL (4.7-6.0) L 03/26/22 05:21 Hgb 13.3 g/dL (13.5-18.0) L 03/26/22 05:21 Hct 39.6 % (42.0-54.0) L 03/26/22 05:21 MCV 91.7 fL (80.0-100.0) 03/26/22 05:21 MCH 30.9 pg (27.0-34.0) 03/26/22 05:21 MCHC 33.7 g/dL (33.0-35.0) 03/26/22 05:21 RDW 13.9 % (11.6-16.5) 03/26/22 05:21 Plt Count 217 X10^3/uL (150.0-450.0) 03/26/22 05:21 MPV 8.1 fL (7.4-11.0) 03/26/22 05:21 Neut % (Auto) 53.7 % (42.0-75.0) 03/26/22 05:21 Lymph % (Auto) 23.9 % (21.0-51.0) 03/26/22 05:21 [place] % (Auto) 16.1 % (0.0-13.0) H 03/26/22 05:21 Eos % (Auto) 5.4 % (0.9-2.9) H 03/26/22 05:21 Baso % (Auto) 0.9 % (0.2-1.0) 03/26/22 05:21 Neut # (Auto) 4.0 x10^3/uL (2.2-4.8) 03/26/22 05:21 Lymph # (Auto) 1.8 X10^3/uL (1.3-2.9) 03/26/22 05:21 [place] # (Auto) 1.2 x10^3/uL (0.3-0.8) H 03/26/22 05:21 Eos # (Auto) 0.4 x10^3/uL (0.0-0.2) H 03/26/22 05:21 Baso # (Auto) 0.1 X10^3/uL (0.0-0.1) 03/26/22 05:21 Absolute Nucleated RBC 0.0 /100WBC 03/26/22 05:21 Sodium 140 mmol/L (136-145) 03/26/22 05:21 Corrected Sodium TNP 03/26/22 05:21 Potassium 4.2 mmol/L (3.5-5.1) 03/26/22 05:21 Chloride 103 mmol/L (98-107) 03/26/22 05:21 Carbon Dioxide 28.1 mmol/L (21-32) 03/26/22 05:21 BUN 12 mg/dL (7-18) 03/26/22 05:21 Creatinine 1.20 mg/dL (0.70-1.30) 03/26/22 05:21 Est GFR (MDRD) Af Amer > 60 (>60) 03/26/22 05:21 Est GFR (MDRD) Non-Af > 60 (>60) 03/26/22 05:21 Glucose 97 mg/dL (65-99) 03/26/22 05:21 Calcium 8.9 mg/dL (8.5-10.1) 03/26/22 05:21 Corrected Calcium 9.5 mg/dL (8.5-10.1) 03/26/22 05:21 Total Bilirubin 0.50 mg/dL (0.2-1.0) 03/26/22 05:21 AST 28 Units/L (15-37) 03/26/22 05:21 ALT 36 Units/L (12-78) 03/26/22 05:21 Alkaline Phosphatase 84 Units/L (46-116) 03/26/22 05:21 Total Protein 6.9 g/dL (6.4-8.2) 03/26/22 05:21 Albumin 3.2 g/dL (3.4-5.0) L 03/26/22 05:21 Globulin 3.7 g/dL (2.5-4.5) 03/26/22 05:21 Albumin/Globulin Ratio 0.9 Ratio (1.1-2.1) L 03/26/22 05:21 - Assessment and Plan 3: subsiding PO ileus . dehydration. recent laparotomy , repair of incarcerated incisional hernia , partial omentectomy . COPD . to advance diet . KUB today . maybe d/c in am - Problem Patient Problems: Patient Problems SBO (small bowel obstruction) (Acute) K56.609 Hypertension (Acute) I10 CAD (coronary artery disease) (Acute) I25.10 Atrial fibrillation (Acute) I48.91
[2022-03-26] MEDS: ELIQUIS PO SCH ×2 (08:46→20:15)
[2022-03-26] MEDS: COZAAR PO SCH (08:46)
--- NOTE | 2022-03-26 16:37 | RAD ---
HISTORYILEUSSTUDYKUBCOMPARISON 03/25/2022FINDINGSEvaluation of the abdomen demonstrates a prominent gas-filled small bowel loop overlying the left abdomen measuring up to 4.2 cm in diameter. No pathological soft tissue mass or calcification can be observed. The bony structures are grossly intact. Midline surgical staple line.IMPRESSIONMild small-bowel distention which may be seen with ileus or developing obstruction. Continued close follow-up recommended.Electronically signed by: ALEXANDER LEE (Mar 26, 2022 16:36:46)
[2022-03-26] MEDS ORDERED: NORCO 5/325 MG TAB PO PRN (19:22)
[2022-03-26] MEDS ORDERED: LEXAPRO ONE (20:10)
[2022-03-26] MEDS ORDERED: TOPROL XL PO ONE (20:11)
[2022-03-26] MEDS: PROTONIX TAB 40 MG PO SCH (20:15)
[2022-03-26] MEDS: TOPROL XL PO SCH (20:15)
[2022-03-26] MEDS: LEXAPRO PO SCH (20:15)
[2022-03-27 05:44] LABS: BASOPHILS # (AUTO) 0.1 X10^3/uL (0.0-0.1); BASOPHILS % (AUTO) 0.9 % (0.2-1.0); EOSINOPHILS # (AUTO) 0.5 x10^3/uL (0.0-0.2); EOSINOPHILS % (AUTO) 5.9 % (0.9-2.9); HEMATOCRIT 40.7 % (42.0-54.0); HEMOGLOBIN 13.5 g/dL (13.5-18.0); LYMPHOCYTES # (AUTO) 1.8 X10^3/uL (1.3-2.9); LYMPHOCYTES % (AUTO) 23.9 % (21.0-51.0); MEAN CORPUSCULAR HEMOGLOBIN 30.7 pg (27.0-34.0); MEAN CORPUSCULAR HGB CONC 33.1 g/dL (33.0-35.0); MEAN CORPUSCULAR VOLUME 92.7 fL (80.0-100.0); MONOCYTES # (AUTO) 1.2 x10^3/uL (0.3-0.8); MONOCYTES % (AUTO) 15.6 % (0.0-13.0); NEUTROPHILS # (AUTO) 4.1 x10^3/uL (2.2-4.8); NEUTROPHILS % (AUTO) 53.7 % (42.0-75.0); RED BLOOD COUNT 4.39 X10^6/uL (4.7-6.0); WHITE BLOOD COUNT 7.7 X10^3/uL (3.6-10.0)
[2022-03-27 05:55] LABS: BLOOD UREA NITROGEN 10 mg/dL (7-18); CARBON DIOXIDE 29.4 mmol/L (21-32); CHLORIDE 106 mmol/L (98-107); CREATININE 1.12 mg/dL (0.70-1.30); SODIUM 143 mmol/L (136-145); eGFR NON BLACK RACES > 60 (>60)
[2022-03-27] MEDS: NS 1,000 ML IV 1,000 ML IV SCH (05:58)
[2022-03-27 06:23] LABS: ALANINE AMINOTRANSFERASE 38 Units/L (12-78); ALBUMIN 3.2 g/dL (3.4-5.0); ALKALINE PHOSPHATASE 80 Units/L (46-116); ASPARTATE AMINO TRANSFERASE 33 Units/L (15-37); COR CA(FOR HYPOALB) 9.6 mg/dL (8.5-10.1)
--- NOTE | 2022-03-27 08:17 | DR.H&P ---
H&P History & Physical for Day of: H&P Date: 03/26/22 Chief Complaint Chief Complaint: Abdominal pain Allergies Allergies Allergy/AdvReac Type Severity Reaction Status Date / Time No Known Drug Allergies Allergy Verified 05/29/19 18:35 History of Present Illness History of Present Illness: Pt is a 81 year old male admitted for Past Medical History Past Medical History: Anxiety, Depression, Dyslipidemia, GERD and Hypertension Past Surgical History Surgical History: Abdominal Surgery, Appendectomy, Cholecystectomy, Ortho Surgery and Other Family History Family Medical History: [place], Coronary Artery Disease, Sudden Cardiac and Hypertension Social History Does patient currently use any type of tobacco product: Yes Have you used tobacco products in the last 12 months: Yes Type of Tobacco Use: Smokeless Does any household member use tobacco: Yes Alcohol Use: Occasionally Drug Use: None Medications Home Medications: No Known Drug Allergies Allergy (Verified 05/29/19 18:35) Labs Result Diagrams: 03/27/22 05:05 03/27/22 05:05 Labs: Laboratory WBC 7.7 X10^3/uL (3.6-10.0) 03/27/22 05:05 RBC 4.39 X10^6/uL (4.7-6.0) L 03/27/22 05:05 Hgb 13.5 g/dL (13.5-18.0) 03/27/22 05:05 Hct 40.7 % (42.0-54.0) L 03/27/22 05:05 MCV 92.7 fL (80.0-100.0) 03/27/22 05:05 MCH 30.7 pg (27.0-34.0) 03/27/22 05:05 MCHC 33.1 g/dL (33.0-35.0) 03/27/22 05:05 RDW 14.0 % (11.6-16.5) 03/27/22 05:05 Plt Count 217 X10^3/uL (150.0-450.0) 03/27/22 05:05 MPV 8.0 fL (7.4-11.0) 03/27/22 05:05 Neut % (Auto) 53.7 % (42.0-75.0) 03/27/22 05:05 Lymph % (Auto) 23.9 % (21.0-51.0) 03/27/22 05:05 [place] % (Auto) 15.6 % (0.0-13.0) H 03/27/22 05:05 Eos % (Auto) 5.9 % (0.9-2.9) H 03/27/22 05:05 Baso % (Auto) 0.9 % (0.2-1.0) 03/27/22 05:05 Neut # (Auto) 4.1 x10^3/uL (2.2-4.8) 03/27/22 05:05 Lymph # (Auto) 1.8 X10^3/uL (1.3-2.9) 03/27/22 05:05 [place] # (Auto) 1.2 x10^3/uL (0.3-0.8) H 03/27/22 05:05 Eos # (Auto) 0.5 x10^3/uL (0.0-0.2) H 03/27/22 05:05 Baso # (Auto) 0.1 X10^3/uL (0.0-0.1) 03/27/22 05:05 Absolute Nucleated RBC 0.0 /100WBC 03/27/22 05:05 Sodium 143 mmol/L (136-145) 03/27/22 05:05 Corrected Sodium TNP 03/27/22 05:05 Potassium 4.3 mmol/L (3.5-5.1) 03/27/22 05:05 Chloride 106 mmol/L (98-107) 03/27/22 05:05 Carbon Dioxide 29.4 mmol/L (21-32) 03/27/22 05:05 BUN 10 mg/dL (7-18) 03/27/22 05:05 Creatinine 1.12 mg/dL (0.70-1.30) 03/27/22 05:05 Est GFR (MDRD) Af Amer > 60 (>60) 03/27/22 05:05 Est GFR (MDRD) Non-Af > 60 (>60) 03/27/22 05:05 Glucose 93 mg/dL (65-99) 03/27/22 05:05 Calcium 9.0 mg/dL (8.5-10.1) 03/27/22 05:05 Corrected Calcium 9.6 mg/dL (8.5-10.1) 03/27/22 05:05 Total Bilirubin 0.40 mg/dL (0.2-1.0) 03/27/22 05:05 AST 33 Units/L (15-37) 03/27/22 05:05 ALT 38 Units/L (12-78) 03/27/22 05:05 Alkaline Phosphatase 80 Units/L (46-116) 03/27/22 05:05 Total Protein 7.0 g/dL (6.4-8.2) 03/27/22 05:05 Albumin 3.2 g/dL (3.4-5.0) L 03/27/22 05:05 Globulin 3.8 g/dL (2.5-4.5) 03/27/22 05:05 Albumin/Globulin Ratio 0.8 Ratio (1.1-2.1) L 03/27/22 05:05 Physical Exam Vital Signs: Temperature 97.6 F Pulse Rate [Left Radial] 64 Pulse Rate 71 Respiratory Rate 21 Blood Pressure [Left Arm] 128/77 Blood Pressure 150/84 O2 Sat by Pulse Oximetry 98 Oriented: Normal
--- NOTE | 2022-03-27 08:26 | DR.CONSULT ---
CONSULT Consultation for Day of: Date: 03/26/22 Chief Complaint Chief Complaint: Abdominal pain Allergies Allergies Allergy/AdvReac Type Severity Reaction Status Date / Time No Known Drug Allergies Allergy Verified 05/29/19 18:35 History of Present Illness History of Present Illness: Pt is a 81-year-old male who was status post recent laparotomy, partial lumentectomy, and repair of incarcerated incisional hernia. He did well post-operatively and was discharged home. He returned to hospital after having no bowel movement since the time of surgery and having nausea. CT scan was performed and showed possible partial bowel obstruction. Family Medicine was consulted for medical management. Pt was given enema and has had bowel movement by the time of examination. He reports that his symptoms have significantly improved and his diet is being slowly advanced. Will review home medications and restart. Continue to monitor. Past Medical History Past Medical History: Anxiety, Depression, Dyslipidemia, GERD and Hypertension Past Surgical History Surgical History: Abdominal Surgery, Appendectomy, Cholecystectomy, Ortho Surgery and Other Family History Family Medical History: [place], Coronary Artery Disease, Sudden Cardiac and Hypertension Social History Does patient currently use any type of tobacco product: Yes Have you used tobacco products in the last 12 months: Yes Type of Tobacco Use: Smokeless Does any household member use tobacco: Yes Alcohol Use: Occasionally Drug Use: None Medications Home Medications: No Known Drug Allergies Allergy (Verified 05/29/19 18:35) Review of Systems Constitutional: No Symptoms Reported Eyes: No Symptoms Reported ENT: No Symptoms Reported Respiratory: No Symptoms Reported Cardiovascular: No Symptoms Reported Gastrointestinal: Nausea, Abdominal Pain and Constipation Genitourinary: No Symptoms Reported Musculoskeletal: No Symptoms Reported Skin: No Symptoms Reported Neurological: No Symptoms Reported Physical Exam Vital Signs: Temperature 97.6 F Pulse Rate [Left Radial] 64 Pulse Rate 71 Respiratory Rate 21 Blood Pressure [Left Arm] 128/77 Blood Pressure 150/84 O2 Sat by Pulse Oximetry 98 Oriented: Normal Eyes: Normal Nose: Normal Respiratory: Clear Throughout Cardiovascular: Normal : Normal Auscultation: Bowel Sounds: Normal Palpation: Normal Tenderness: Periumbilical (surgical wound) and Mild Skin: Normal Musculoskeletal: Normal Psychiatric: Normal Speech Pattern: Clear Plan (1) SBO (small bowel obstruction): Status: Acute Narrative Support Text: Surgery is primary Will review and restart home medications.
[2022-03-27] MEDS: COZAAR PO SCH (09:04)
[2022-03-27] MEDS: ELIQUIS PO SCH (09:05)
[2022-03-27 09:45] VITALS: BP 163/84
== END 2022-03-27 10:30 | disposition home health service (06) ==
LOC: ER 08:42 → MED/SURG 08:42
PROVIDERS: ADMIT Surgery; ATTEND Internal Medicine
DX: E86.0 Dehydration; I10 Essential (primary) hypertension; K21.9 Gastro-esophageal reflux disease without esophagitis; Z79.01 Long term (current) use of anticoagulants; K91.31 Postprocedural partial intestinal obstruction; I48.91 Unspecified atrial fibrillation; F32.89 Other specified depressive episodes; E78.2 Mixed hyperlipidemia; I25.10 Atherosclerotic heart disease of native coronary artery without angina pectoris; Z98.890 Other specified postprocedural states; R10.84 Generalized abdominal pain; J44.9 Chronic obstructive pulmonary disease, unspecified